=== PATIENT | female | born 1985 | race Caucasian/White ===

== ENCOUNTER 2023-10-23 00:07 | Emergency (ER) | payer MEDICAID, SELFPAY ==
[2023-10-23] VITALS (9 sets, daily range): BP systolic 122–175; BP diastolic 76–103; PULSE 60–88; RESP 12–29; TEMP 36.7–36.9; O2SAT 94–99; BMI 28.3
--- NOTE | 2023-10-23 00:16 | ECG_ITS ---
APPROVED REPORT Exam: Resting ECG HR:87 bpm ECG Measurements Heart Rate 87 AXES VT 148 P 65 QRSd 86 QRS 82 QT 374 T 24 QTc 419 Conclusion SINUS RHYTHM WITH SINUS ARRHYTHMIA MINIMAL ST DEPRESSION [0.025+ mV ST DEPRESSION] BORDERLINE ECG UNCONFIRMED REPORT Electronically signed by : Mor Leahy MD 10/23/2023 09:01:41
--- NOTE | 2023-10-23 00:19 | XR_ITS ---
PROCEDURE INFORMATION: Exam: XR Chest Exam date and time: 10/23/2023 12:24 AM Age: 38 years old Clinical indication: Shortness of breath; Additional info: Cough, SOA TECHNIQUE: Imaging protocol: Radiologic exam of the chest. Views: 2 views. Total images: 4 COMPARISON: No relevant prior studies available. FINDINGS: Lungs: Unremarkable. No consolidation. No pulmonary vascular congestion or edema. Pleural spaces: Unremarkable. No pleural effusion. No pneumothorax. Heart/Mediastinum: Unremarkable. No cardiomegaly. No mediastinal widening or hilar enlargement. Bones/joints: Mild degenerative changes thoracic spine. Soft tissues: Bilateral nipple piercings. Breast attenuation artifact. IMPRESSION: No radiographically acute cardiopulmonary process.
--- NOTE | 2023-10-23 00:32 | PC.NURSE ---
patient gone to XRay at this time.
[2023-10-23 00:36] LABS: Coronavirus 19, PCR Not Detected (NotDetected); Influenza A, PCR Not Detected (NotDetected); Influenza B, PCR Not Detected (NotDetected)
[2023-10-23 00:36] LABS: Basophils # 0.1 K/mm3 (0-0.2); Basophils % 0.7 % (0.1-2.0); Eosinophils # 0.2 K/mm3 (0.0-0.4); Hematocrit 44.8 % (37.0-47.0); Hemoglobin 15.4 g/dL (12.2-16.2); Lymphocytes % 49.6 % (10-50); Mean Corpuscular HGB Conc 34.4 g/dL (31.8-35.4); Mean Corpuscular Hemoglobin 30.6 pg (27.0-31.2); Mean Corpuscular Volume 88.8 fl (81-99); Mean Platelet Volume 8.9 fl (7.4-10.4); Monocytes # 0.3 K/mm3 (0.1-1.0); Monocytes % 3.6 % (1.7-9.3); Neutrophils # 3.5 K/mm3 (1.8-7.8); Neutrophils % 43.1 % (37.0-80.0); Platelet Count 197 K/mm3 (142-424); Red Blood Count 5.05 M/mm3 (4.20-5.40); Red Cell Distribution Width 13.3 % (11.5-17.5)
[2023-10-23] MEDS: PANTOPRAZOLE 40MG TABLET 40 MG PO (00:38)
[2023-10-23] MEDS: BELLADONNA ALKALOIDS 60 ML ML PO (00:39)
[2023-10-23 00:40] LABS: Chloride 105 mmol/L (98-107); Sodium 138 mmol/L (136-145)
[2023-10-23 00:41] LABS: Potassium 3.7 mmoL/L (3.5-5.1)
--- NOTE | 2023-10-23 00:41 | ED_ITS ---
Discharge Plan Disposition Patient Disposition: Home, Self-Care Condition: Good Prescriptions Prescriptions: New pantoprazole 40 mg tablet,delayed release (DR/EC) 40 mg PO DAILY Qty: 30 0RF Referrals Follow up/Referrals: Provider,Referral, [Primary Care Provider] - See instructions Activity Restrictions/Add. Instructions Additional Instructions/Restrictions: You were evaluated in the emergency department today. Your blood pressure readings were high temporarily, however they returned to normal range. It requires multiple visits to primary care provider's office to be diagnosed with high blood pressure officially and to be started on medication. We do not start people on medication with brief episodes of high blood pressure, as we could inadvertently cause your blood pressure to drop too low and cause harm to you. It is possible your symptoms could be related to anxiety, as your workup today has been reassuring. For your reflux, I am prescribing you pantoprazole to take daily. I recommend close follow-up with a primary care provider if you are able to. I am providing you with information for Dr. Shea. Return to the emergency department for any new or worsening symptoms. Clinical Impressions Clinical Impression: Temporary high blood pressure, Anxiety, Gastroesophageal reflux disease, Viral URI with cough Instructions Patient Instructions: DI for Gastroesophageal Reflux Disease (GERD), DI for High Blood Pressure, DI for Anxiety -- Adult Discharge ED Provider: Nae Garrido General Adult HPI General Chief complaint: Upper Respiratory Infection Stated complaint: light headed, high blood pressure Time Seen by Provider: 10/23/23 00:13 Mode of Arrival: Ambulatory Source of Information: Patient Limitations: No Limitations Description of Symptoms (Recalled from ER Triage Doc. by RN): Patient c/o high blood pressure, height of 175/105. Patient states that she has been feeling six for about a week with cough and sneezing, taking cold/flu medications. History of Present Illness HPI narrative: This patient is a 38-year-old female who denies significant past medical history presenting to the emergency department for evaluation with concern for high blood pressure reading at home. Patient states that she has had issues for quite some time now with sweatiness in her palms and feet as well as not feeling right overall. She states that she thought maybe it was anxiety, and she never got evaluated for this as she does not have insurance. She also states that she has had acid reflux frequently, even getting to the point of burping from, so she thought maybe she has GERD but she has not been able to be seen for this. She notes that she has been sick for approximately 3 days now with an upper respiratory infection with cough, sneezing, and congestion. She notes that she has been taking [place] cold and flu at home but has not taken it since last night. Tonight, she felt really unusual. She had a funny feeling in her head, felt funny in her chest, and had sensation of tingling going down her right arm as well as sweatiness in her palms. She noted that her blood pressure at home was 175/105. She denies any history of hypertension and states that typically her blood pressure is actually on the low side. Given this, she decided to come in today. She has extensive family cardiac history. Related Data Previous Rx's Medication Instructions Recorded pantoprazole 40 mg tablet,delayed 40 mg PO DAILY #30 tabs 10/23/23 release Allergies Allergy/AdvReac Type Severity Reaction Status Date / Time No Known Allergies Allergy Verified 10/23/23 00:22 [facility] Disclaimer: The information contained in this section may have been updated after the patient was seen, as this information can be updated by other users. Social History Smoking Status: Current every day smoker alcohol intake: never current occupational status: employed Travel in the last 8 weeks: None ROS Obtained: Yes All systems reviewed & no additional complaints except as documented Physical Exam General General appearance: alert and in no apparent distress Head Head exam: atraumatic and normocephalic Eye Eye exam: Present normal appearance, PERRL and EOMI ENT ENT exam: Present normal exam, normal oropharynx, mucous membranes moist and normal external ear exam Neck Neck exam: Present normal inspection, full ROM and trachea midline; Absent tenderness Chest Chest inspection: Present normal inspection and symmetric chest wall rise; Absent tenderness Respiratory Respiratory exam: Present normal lung sounds bilaterally; Absent respiratory distress, wheezes, stridor or accessory muscle use Cardiovascular Cardiovascular exam: Present regular rate and normal rhythm Abdominal Exam Abdominal exam: Present soft; Absent distention, tenderness or guarding Extremities Exam Extremities exam: Present normal inspection, full ROM and normal capillary refil l; Absent tenderness or edema Back Exam Back exam: Present normal inspection and full ROM; Absent tenderness Neurological Exam Neurological exam: Present alert, oriented X3, CN II-XII intact and normal gait; Absent motor sensory deficit Psychiatric Psychiatric exam: Present normal affect and normal mood Skin Skin exam: Present warm and dry Medical Decision Making Medical Records Medical records reviewed: Yes I reviewed the patient's medical records. Ayad Inquiry Pt receiving controlled substance: No Vital Signs: 10/23/23 00:08 10/23/23 00:31 10/23/23 01:00 Temperature 98.5 F Temperature Source Oral Pulse Rate 72 67 Pulse Rate [Radial] 88 Respiratory Rate 16 12 Blood Pressure 145/99 H 139/90 Blood Pressure [Left Arm] 175/103 H Blood Pressure Mean [Left Arm] 127 Blood Pressure Source [Left Arm] Automatic Cuff Blood Pressure Position [Left Arm] Sitting 02 Sat by Pulse Oximetry 99 97 97 Oxygen Delivery Method Room Air 10/23/23 01:31 10/23/23 02:00 10/23/23 02:30 Temperature Temperature Source Pulse Rate 63 81 64 Pulse Rate [Radial] Respiratory Rate 29 H 16 18 Blood Pressure 147/76 H 127/95 H 122/93 H Blood Pressure [Left Arm] Blood Pressure Mean [Left Arm] Blood Pressure Source [Left Arm] Blood Pressure Position [Left Arm] 02 Sat by Pulse Oximetry 97 94 L 96 Oxygen Delivery Method 10/23/23 03:00 10/23/23 03:31 10/23/23 03:36 Temperature 98.1 F Temperature Source Oral Pulse Rate 62 60 63 Pulse Rate [Radial] Respiratory Rate 20 20 18 Blood Pressure 135/83 126/83 126/83 Blood Pressure [Left Arm] Blood Pressure Mean [Left Arm] Blood Pressure Source [Left Arm] Blood Pressure Position [Left Arm] 02 Sat by Pulse Oximetry 95 97 Oxygen Delivery Method Room Air Room Air Room Air Lab Data Lab results reviewed: Yes I reviewed the patient's lab results. Lab Results 10/23/23 00:23: SARS-CoV-2 (PCR) Not detected, Influenza A Untype (PCR) Not detected, Influenza Type B (PCR) Not detected 10/23/23 00:29: WBC 8.0, RBC 5.05, Hgb 15.4, Hct 44.8, MCV 88.8, MCH 30.6, MCHC 34.4, RDW 13.3, Plt Count 197, MPV 8.9, Neut % (Auto) 43.1, Lymph % (Auto) 49.6, [place] % (Auto) 3.6, Eos % (Auto) 3.0, Baso % (Auto) 0.7, Neut # (Auto) 3.5, Lymph # (Auto) 4.0, Pre[place] # (Auto) 0.3, Eos # (Auto) 0.2, Baso # (Auto) 0.1, Sodium 138, Potassium 3.7, Chloride 105, Carbon Dioxide 24, Anion Gap 12.7, BUN 15, Creatinine 0.90, Estimated Creat Clear 98, Estimated GFR 69, Est GFR ( Amer) 84, Glucose 127 H, Calcium 8.3 L, Total Bilirubin 0.4, AST 32, ALT 24, Alkaline Phosphatase 110, Troponin I < 0.01, Total Protein 7.7, Albumin 4.4, Globulin 3.3 H, Albumin/Globulin Ratio 1.3, TSH 3.55, Thyroxine (T4) 7.9, Serum HCG, Qual Negative 10/23/23 00:41: Urine Color Yellow, Urine Appearance Clear, Urine pH 6.0, Ur Specific [place] 1.015, Urine Protein Negative, Urine Glucose (UA) Negative, Urine Ketones Negative, Urine Blood 1+, Urine Nitrate Negative, Urine Bilirubin Negative, Urine Urobilinogen 0.2, Ur Leukocyte Esterase Negative, Urine RBC Occasional, Urine WBC 3-5, Ur Squamous Epith Cells 5-10, Urine Bacteria 1+ 10/23/23 03:04: Troponin I < 0.01 10/23/23 00:29 10/23/23 00:29 Orders (Tests/Meds): ED MEDICATIONS Discontinued Medications Generic Name Dose Route Start Last Admin Trade Name Freq PRN Reason Stop Dose Admin Belladonna Alkaloids 60 ml 10/23/23 00:25 10/23/23 00:39 Belladonna Alkaloids 60 Ml Ml PO 10/23/23 00:26 60 ml ONCE ONE Administration Lactated Ringer's 1,000 mls @ 999 mls/hr 10/23/23 01:06 10/23/23 01:20 Lactated Ringer's 1000 Ml Bag IV 10/23/23 02:06 999 mls/hr .Q1H1M ONE Administration Pantoprazole Sodium 40 mg 10/23/23 00:25 10/23/23 00:38 Pantoprazole 40mg Tablet PO 10/23/23 00:26 40 mg ONCE ONE Administration ORDERS Category Date Time Status XR chest 2V Stat Exams 10/23/23 00:19 Completed Complete Blood Count Auto Diff Stat Lab 10/23/23 00:29 Completed Comprehensive Metabolic Panel Stat Lab 10/23/23 00:29 Completed Rapid PCR Covid and Flu A/B Stat Lab 10/23/23 00:23 Completed Serum [HCG Qualitative, Serum] Stat Lab 10/23/23 00:29 Completed T4 (Thyroxine) Stat Lab 10/23/23 00:29 Completed Thyroid Stimulating Hormone Stat Lab 10/23/23 00:29 Completed Troponin I Q3H Lab 10/23/23 03:04 Completed Troponin I Q3H Lab 10/23/23 06:30 Ordered Troponin I Stat Lab 10/23/23 00:29 Completed Urinalysis and Microscopic Stat Lab 10/23/23 00:41 Completed ECG initial Besson Routine Y 10/23/23 00:16 Completed ECG Data Tracing #1: I reviewed this ECG and interpreted as documented below: Normal sinus rhythm with a ventricular rate of [address] changes concerning for ischemia. Normal axis and intervals ECG initial impression date: 10/23/23 ECG initial impression time: 00:18 HEART Score History (anamnesis): Moderately suspicious ECG: Non-specific disturbance Age: <45 years Risk factors: No known risk factors Troponin: </= normal limit HEART Score: 2 Medical Decision Narrative: In summary, this patient is a 38-year-old female presenting to the Emergency Department for evaluation of strange feeling all over, sweatiness in her palms, and high blood pressure reading at home in the setting of current viral upper respiratory infection. Differential diagnoses considered include but are not limited to viral URI, pneumonia, ACS, dysrhythmia, hypertension, hypertensive urgency, hypertensive emergency, anxiety, GERD. Ruling out the most morbid conditions drove assessment. On exam, the patient is nontoxic-appearing. Cardiopulmonary exam is reassuring, and vitals are reassuring on cardiac telemetry aside from hypertension with systolics in the 170s. EKG was obtained and is not concerning for STEMI. Patient is PERC negative for pulmonary embolus. Workup included CBC, CMP, troponin, TSH, T4, chest x-ray, urinalysis, viral swab. Patient was given GI cocktail and pantoprazole for acid reflux symptoms. At this time, I am not treating her hypertension, as I feel this could be result of her upper respiratory infection and/or the cold and flu medication that she has been taking at home. She notes that her blood pressure is typically low, so I feel that the risk of starting her on antihypertensives to manage this blood pressure would outweigh the benefit. We are continuing to monitor her blood pressure on cardiac telemetry at this time. On reassessment, patient had improvement in her blood pressure to 130s over 90s. She is resting comfortably and she states that she feels like she is calm down and the sweating in her palms and feet has improved. She had some improvement with administration of medications as above. Labs are reassuring with negative initial troponin, normal kidney function, and no other acute concerns. I independently interpreted chest x-ray prior to radiology read and noted no acute focal consolidation, pneumothorax, or other concerns. Please see radiology read for further documentation. Heart score is 2. At this time, feel her symptoms may be related to anxiety given that they were ongoing before her viral upper respiratory infection with intermittent lightheadedness, funny feeling, and sweatiness in her palms and soles. This could also explain her hypertension that resolved once she had calm down. I do feel like we should obtain a second troponin to exclude cardiac etiology at this time. Patient was placed in ED observation status at 0100 10/23/23 pending second troponin to determine whether or not she would be appropriate for discharge and outpatient follow-up. Given her recent URI and the fact she has been feeling rough, she was also given a bolus of IV fluids. Patient remains on cardiac telemetry with reassuring vital signs at this time. On subsequent reassessment, the patient is resting calmly with normal vital signs on cardiac telemetry, including blood pressure. Second troponin was also undetectable. Given reassuring workup and exam, I do not feel that the patient likely has any acute life-threatening illness at this time. I do feel that she is appropriate for discharge. Given this, ED observation status was ended at 0330 after 2.5 hours. I had a [id number] discussion with the patient regarding discharge, and less than 30 minutes was spent in preparation for discharge. I counseled her on the importance of outpatient follow-up with her primary care provider for further evaluation and management of these issues. She was given prescription for pantoprazole for her acid reflux symptoms. She was given strict return precautions, instructions to close the patient woke, and she was discharged in stable condition after all questions were answered. She was discharged in stable condition. Critical Care Critical Care Time Critical Care Time: No
[2023-10-23 00:43] LABS: Alanine Aminotransferase 24 U/L (12-78); Albumin Level 4.4 g/dl (3.5-5.0); Albumin/Globulin Ratio 1.3 (1.1-1.8); Alkaline Phosphatase 110 U/L (38-126); Anion Gap 12.7 mEq/L (5-15); Aspartate Amino Transferase 32 U/L (14-36); Bilirubin,Total 0.4 mg/dl (0.2-1.3); Blood Urea Nitrogen 15 mg/dl (7-17); Carbon Dioxide 24 mmol/L (22.0-30.0); Creatinine Clearance Estimated 98 mL/min (50-200); Estimated Glomerular Filt Rate 69 ml/min (>60); GFR (African American) 84 ML/MIN (>60); Globulin 3.3 g/dL (1.3-3.2); Total Protein,Serum 7.7 g/dl (6.3-8.2)
[2023-10-23 00:44] LABS: Calcium 8.3 mg/dl (8.4-10.2); Glucose 127 mg/dl (74-100)
[2023-10-23 00:47] LABS: HCG Qualitative, Serum Negative (Negative)
[2023-10-23 00:48] LABS: Microscopic, Urine URINE MICROSCOPIC (MICROSCOPIC)
[2023-10-23 00:57] LABS: Appearance,Urine CLEAR (Clear); Bilirubin,Urine Negative (Negative); Blood, Urine 1+ (Negative); Color,Urine YELLOW (Yellow); Glucose,Urine (UA) Negative (Negative); Ketones,Urine Negative (Negative); Leukocyte Esterase,Urine Negative (Negative); Nitrate,Urine Negative (Negative); Protein,Urine Negative (Negative); Specific Gravity, Urine 1.015 (1.005-1.030); Urobilinogen,Urine 0.2 EU/dl (0.2)
[2023-10-23 00:58] LABS: Troponin I < 0.01 ng/ml (0.00-0.034)
[2023-10-23 01:00] LABS: Bacteria,Urine 1+ /lpf; RBC,Urine Occasional #/hpf (0-3)
[2023-10-23 01:01] LABS: T4 (Thyroxine) 7.9 ug/dl (5.53-11.0)
[2023-10-23 01:15] LABS: Thyroid Stimulating Hormone 3.55 uIU/mL (0.465-4.68)
[2023-10-23] MEDS: LACTATED RINGERS 1000ML 1,000 ML 999 ML IV (01:20)
--- NOTE | 2023-10-23 02:00 | PC.NURSE ---
dr Garrido updated patient and family.
--- NOTE | 2023-10-23 02:05 | PC.NURSE ---
assisted patient to restroom.
[2023-10-23 03:33] LABS: Troponin I < 0.01 ng/ml (0.00-0.034)
--- NOTE | 2023-10-23 03:36 | PC.NURSE ---
in room talking with patient at this time.
== END 2023-10-23 03:45 | disposition home or self-care (01) ==
PROVIDERS: Emergency Provider Emergency Medicine
DX: R42 Dizziness and giddiness (principal); K21.9 Gastro-esophageal reflux disease without esophagitis; J06.9 Acute upper respiratory infection, unspecified; R05.9 Cough, unspecified; R03.0 Elevated blood-pressure reading, without diagnosis of hypertension
CPT/HCPCS: 71046; 80053; 81001; 84436; 84443; 84484; 84703; 85025; 87636; 93005; 96360; 99285

== ENCOUNTER 2024-01-05 11:31 | Outpatient (CLI) | payer MEDICAID, SELFPAY ==
[2024-01-05 11:35] LABS: Basophils # 0.1 K/mm3 (0-0.2); Basophils % 0.9 % (0.1-2.0); Eosinophils # 0.1 K/mm3 (0.0-0.4); Eosinophils % 1.6 % (0.1-12.0); Hematocrit 46.5 % (37.0-47.0); Hemoglobin 15.3 g/dL (12.2-16.2); Lymphocytes # 1.8 K/mm3 (0.7-4.5); Lymphocytes % 20.7 % (10-50); Mean Corpuscular HGB Conc 32.8 g/dL (31.8-35.4); Mean Corpuscular Hemoglobin 31.2 pg (27.0-31.2); Mean Corpuscular Volume 94.9 fl (81-99); Mean Platelet Volume 9.1 fl (7.4-10.4); Monocytes # 0.3 K/mm3 (0.1-1.0); Monocytes % 3.4 % (1.7-9.3); Neutrophils # 6.4 K/mm3 (1.8-7.8); Neutrophils % 73.3 % (37.0-80.0); Platelet Count 214 K/mm3 (142-424); Red Cell Distribution Width 13.6 % (11.5-17.5); White Blood Count 8.7 K/mm3 (4.8-10.8)
[2024-01-05 12:22] LABS: Alanine Aminotransferase 16 U/L (12-78); Albumin Level 4.6 g/dl (3.5-5.0); Albumin/Globulin Ratio 1.5 (1.1-1.8); Alkaline Phosphatase 132 U/L (38-126); Anion Gap 12.7 mEq/L (5-15); Aspartate Amino Transferase 23 U/L (14-36); Bilirubin,Total 0.6 mg/dl (0.2-1.3); Blood Urea Nitrogen 11 mg/dl (7-17); Calcium 9.3 mg/dl (8.4-10.2); Carbon Dioxide 22 mmol/L (22.0-30.0); Chloride 109 mmol/L (98-107); Estimated Glomerular Filt Rate 79 ml/min (>60); GFR (African American) 96 ML/MIN (>60); Glucose 104 mg/dl (74-100); Potassium 4.7 mmoL/L (3.5-5.1); Sodium 139 mmol/L (136-145); Total Protein,Serum 7.6 g/dl (6.3-8.2)
[2024-01-05 12:28] LABS: C-Reactive Protein 6.1 mg/L (0-4)
[2024-01-05 12:43] LABS: Triiodothryronine (T3) Uptake 33 % (23.5-40.5)
[2024-01-05 12:56] LABS: Thyroid Stimulating Hormone 1.34 uIU/mL (0.465-4.68)
[2024-01-05 13:07] LABS: Erythrocyte Sedimentation Rate 15 mm/hr (0-20)
[2024-01-06 14:59] LABS: Anti-Centromere B Antibodies <0.2 AI (0.0-0.9); Anti-Cyclic Citrullinated Pept 3 units (0-19); Anti-DNA (DS) Ab Qn <1 IU/mL (0-9); Anti-Jo-1 <0.2 AI (0.0-0.9); Anti-Smith Antibody <0.2 AI (0.0-0.9); Antichromatin Antibodies <0.2 AI (0.0-0.9); Antiscleroderma-70 Antibodies <0.2 AI (0.0-0.9); FSH 11.9 mIU/mL (.); HBsAg Screen Negative (Negative); HCV Ab Non Reactive (Non Reactive); HIV Screen 4th Generation wRfx Non Reactive (Non Reactive); Hep A Ab, IGM Negative (Negative); Hep B Core Ab, IgM Negative (Negative); Progesterone 0.3 ng/mL (.); RA Latex Turbid. <10.0 IU/mL (<14.0); RNP Antibodies <0.2 AI (0.0-0.9); Sjogren's Anti-SS-A <0.2 AI (0.0-0.9); Sjogren's Anti-SS-B <0.2 AI (0.0-0.9); Testosterone,Total 9 ng/dL (8-60)
[2024-01-06 16:14] LABS: EBV Ab VCA, IgG >600.0 U/mL (0.0-17.9); EBV Ab VCA, IgM <36.0 U/mL (0.0-35.9)
[2024-01-11 00:08] LABS: Estrogen 74 pg/mL (.)
== END 2024-01-05 23:59 | disposition home or self-care (01) ==
LOC: LAB.DROPOF 11:31
PROVIDERS: PCP Physician Assistant; Visit Provider Physician Assistant
DX: K92.1 Melena (principal); R61 Generalized hyperhidrosis; R00.2 Palpitations; K21.9 Gastro-esophageal reflux disease without esophagitis; F41.9 Anxiety disorder, unspecified; R19.5 Other fecal abnormalities
CPT/HCPCS: 80053; 80074; 82672; 83001; 83002; 84144; 84403; 84436; 84443; 84479; 85025; 85651; 86140; 86200; 86225; 86235; 86431; 86664; 86665; 86703; G0432

== ENCOUNTER 2024-01-09 13:02 | Outpatient (CLI) | payer MEDICAID, SELFPAY ==
[2024-01-09 13:25] LABS: Adenovirus F 40/41, stool Not Detected (NotDetected); Astrovirus Not Detected (NotDetected); Campylobacter Not Detected (NotDetected); Clostridium Difficile A/B, PCR Not Detected (NotDetected); Cryptosporidium Not Detected (NotDetected); Cyclospora Cayetanesis Not Detected (NotDetected); Entamoeba histolytica Not Detected (NotDetected); Enteroaggregative E coli Not Detected (NotDetected); Enteropathogenic E coli Not Detected (NotDetected); Enterotoxigenic E coli Not Detected (NotDetected); Giardia lamblia Not Detected (NotDetected); Norovirus Not Detected (NotDetected); Plesimonas Shigalloides, PCR Not Detected (NotDetected); Rotavirus A Not Detected (NotDetected); Salmonella, PCR Not Detected (NotDetected); Sapovirus Not Detected (NotDetected); Shiga-like toxin E coli Not Detected (NotDetected); Shigella Enterovasive E coli Not Detected (NotDetected); Vibrio Cholerae Not Detected (NotDetected); Vibrio, PCR Not Detected (NotDetected); Yersinia Entercolitica, PCR Not Detected (NotDetected)
[2024-01-12 14:57] LABS: Pancreatic Elastase, Fecal 351 (>200)
[2024-01-14 23:24] LABS: Calprotectin, Fecal 9 ug/g (0-120)
== END 2024-01-09 23:59 ==
LOC: LAB.DROPOF 13:03
PROVIDERS: PCP Physician Assistant; Visit Provider Physician Assistant
DX: K92.1 Melena (principal); R61 Generalized hyperhidrosis; R00.2 Palpitations
CPT/HCPCS: 82656; 83993; 87507

== ENCOUNTER 2024-01-09 15:12 | Outpatient (CLI) | payer MEDICAID, SELFPAY | END 2024-01-09 23:59 | LOC: RT 15:12 | PROVIDERS: PCP Physician Assistant; Visit Provider Physician Assistant | DX: R00.0 Tachycardia, unspecified (principal); R00.2 Palpitations | CPT/HCPCS: 93225 ==

== ENCOUNTER 2024-01-10 18:55 | Outpatient (CLI) | payer MEDICAID, SELFPAY ==
[2024-01-10 20:48] LABS: Intact Parathyroid Hormone 90.5 pg/mL (7.5-53.5)
[2024-01-16 12:38] LABS: Dopamine, Plasma < 30 pg/mL (0-48); Epinephrine, Plasma 43 pg/mL (0-62); Norepinephrine, Plasma 344 pg/mL (0-874)
== END 2024-01-10 23:59 ==
LOC: LAB 18:57
PROVIDERS: PCP Physician Assistant; Visit Provider Physician Assistant
DX: R89.9 Unspecified abnormal finding in specimens from other organs, systems and tissues (principal)
CPT/HCPCS: 82384; 83970

== ENCOUNTER 2024-01-20 13:19 | Outpatient (CLI) | payer MEDICAID, SELFPAY ==
--- NOTE | 2024-01-20 13:20 | CA_ITS ---
FINAL REPORT TECHNIQUE: Color Doppler, duplex Doppler and georges scale sonography of the bilateral neck vasculature was performed. Velocities were measured in the carotid arteries. Stenosis evaluation based on velocity criteria. CLINICAL HISTORY: right sided neck pain COMPARISON: None FINDINGS: The peak systolic velocity of the right common carotid artery is 109 cm/sec and internal carotid artery 92 cm/sec. The diastolic velocity in the internal carotid artery is 34 cm/sec. The ICA/CCA ratio is 0.95. Visually, no significant plaque is seen. These findings are consistent with less than 50% stenosis. The external carotid artery is patent. The right vertebral artery is patent with antegrade flow. The peak systolic velocity of the left common carotid artery is 99 cm/sec and internal carotid artery 92 cm/sec. The diastolic velocity in the internal carotid artery is 37 cm/sec. The ICA/CCA ratio is 1.14. Visually, no significant plaque is seen. These findings are consistent with less than 50% stenosis. The external carotid artery is patent. The left vertebral artery is patent with antegrade flow. IMPRESSION: No evidence of significant carotid stenosis. Bilateral patent vertebral arteries. If indicated, CTA or MRA could further evaluate. Reviewed, Interpreted and Dictated by Lennox Stokes III, MD Transcribed by Isabella Smith Authenticated and [facility]
== END 2024-01-20 23:59 ==
LOC: RT 13:20
PROVIDERS: PCP Physician Assistant; Visit Provider Physician Assistant
DX: R00.2 Palpitations (principal); M54.2 Cervicalgia
CPT/HCPCS: 93880

== ENCOUNTER 2024-02-06 09:46 | Outpatient (CLI) | payer MEDICAID, SELFPAY ==
--- NOTE | 2024-02-06 09:47 | NM_ITS ---
FINAL REPORT CLINICAL HISTORY: elevated PTH 9:50AM 21.6 MCI TC SODIUM PERTECHNETATE COMPARISON: None FINDINGS: PARATHYROID SCAN History: Elevated PTH Procedure: The patient received a dose of 21.6 millicuries of technetium 99m sodium pertechnetate. Images over the neck were obtained initially and after a two-hour delay. Immediate: Activity is symmetric in both lobes of the thyroid. Delayed: No definite abnormal activity to suggest parathyroid adenoma. IMPRESSION: No evidence of parathyroid adenoma. Reviewed, Interpreted and Dictated by Refugio Suarez MD Transcribed by Nolvia Zepeda Authenticated and [facility]
[2024-02-06] MEDS: SODIUM CHLORIDE 0.9% 10ML SYR (RAD ONLY) 10 ML IV (10:11)
[2024-02-06] MEDS: ISOTOPE TE 99 SODIUM PERTECH (PER MCI) 1 MCI IV (10:11)
== END 2024-02-06 23:59 | disposition home or self-care (01) ==
LOC: RAD 09:47
PROVIDERS: PCP Physician Assistant; Visit Provider Physician Assistant
DX: R79.89 Other specified abnormal findings of blood chemistry (principal)
CPT/HCPCS: 78070; A9512

== ENCOUNTER 2024-08-14 11:25 | Outpatient (CLI) | payer MEDICAID, SELFPAY ==
[2024-08-14 18:57] LABS: Chol/HDL Ratio 4.7 (1-3.5); Cholesterol 186 mg/dl (140-200); HDL Cholesterol 40 mg/dl (40-60); Triglycerides 122 mg/dl (30-150); VLDL Cholesterol 24 mg/dL (0-40)
[2024-08-14 19:08] LABS: Direct LDL Cholesterol 131.71 mg/dL (100-129)
[2024-08-14 19:27] LABS: Thyroid Stimulating Hormone 0.92 uIU/mL (0.465-4.68)
[2024-08-14 19:40] LABS: Creatinine,Urine Random 149 mg/dL (Not Estab.); Microalbumin < 6.000 mg/L (0-16.7)
== END 2024-08-14 23:59 | disposition home or self-care (01) ==
LOC: LAB.DROPOF 08-15 12:47
PROVIDERS: PCP Internal Medicine; Visit Provider Internal Medicine
DX: R00.2 Palpitations (principal); F41.9 Anxiety disorder, unspecified; R03.0 Elevated blood-pressure reading, without diagnosis of hypertension; R53.83 Other fatigue; E66.3 Overweight; Z68.29 Body mass index [BMI] 29.0-29.9, adult
CPT/HCPCS: 80061; 82043; 82306; 82570; 84443

== ENCOUNTER 2025-06-14 10:02 | Emergency (ER) | payer MEDICAID, SELFPAY ==
[2025-06-14] VITALS (12 sets, daily range): BP systolic 119–172; BP diastolic 70–137; PULSE 66–91; RESP 16–18; TEMP 36.4–37.6; O2SAT 97–100
--- NOTE | 2025-06-14 10:11 | ECG_ITS ---
APPROVED REPORT Exam: Resting ECG HR:77 bpm ECG Measurements Heart Rate 77 AXES TX 155 P 63 QRSd 86 QRS 81 QT 337 T 20 QTc 368 Conclusion Sinus rhythm Normal axis Normal intervals NO STEMI Electronically signed by : West Varma, 06/14/2025 16:35:46
--- OUTSIDE RECORDS SUMMARY | 2025-06-14 10:20 | XMS_ITS | Clinical Summary ---
Author Organization [employer] ([place], [place], [place], [place]) Address [address] [place] [address] Care Team Providers Care Import And Export Clerk Name Role Phone Corrina Helton MD Primary Care Provider [phone] Allergies No known active allergies Medications propranoloL (INDERAL LA) 60 MG 24 hr capsule Take 1 capsule (60 mg total) by mouth daily. 08/13/2024 Active Encounters Date Type Department Care Team Description 04/10/2025 1:15 PM EDT Clinical Support [facility] Gastroenterology [address] [place] [id number] Aida Del Toro APRN Miller, Matthew, MD Colon cancer screening from Last 3 Months Social History Tobacco Use Types Packs/Day Years Used Date Smoking Tobacco: Every Day Cigarettes Smokeless Tobacco: Never Tobacco Cessation:Ready to Q uit: Not Asked; Counseling Given: Not Answered Alcohol Use Standard Drinks/Week Comments Yes 0 (1 standard drink = 0.6 oz pur e alcohol) Comments Unknown Sex and Gender Information Value Date Recorded Sex Assigned at Not on file Legal Sex Female 5:36 PM CDT Gender Identity Not on file Sexual Orientation Not on file Last Filed Vital Signs Vital Sign Reading Time Taken Comments Blood Pressure - - Pulse - - Temperature - - Respiratory Rate - - Oxygen Saturation - - Inhaled Oxygen Concentration - - Weight 78.9 kg (174 lb) 04/10/2025 1:24 PM EDT Height 162.6 cm (5' 4 ) 04/10/2025 1:24 PM EDT Body Mass Index 29.87 04/10/2025 1:24 PM EDT Plan of Treatment Health Maintenance Due Date Last Done Comments Depression Screening (12+) 1995 Tobacco Cessation Counseling and Screening (12+) 04/06 HIV Screening 1998 Hepatitis C Screening 2001 Pneumococcal Vaccine: 0-49 Years (1 of 2 - PCV) 2001 Lipid Panel 2003 Pap Smear 2004 DTAP/TDAP/TD VACCINES (2 - Td or Tdap) 05/14/2020 Breast Cancer Screening 2023 COVID-19 VACCINE ( season) 2024 Influenza Vaccine (#1) 2025 Insurance [facility] Care Teams Import And Export Clerk Relationship Specialty Start Date End Date Corrina Helton MD [address] [place] [address] PCP - General Internal Medicine 04/10/25
--- OUTSIDE RECORDS SUMMARY | 2025-06-14 10:20 | XMS_ITS | Referral Summary ---
Author Organization [employer] ([place], [place], [place], [place]) Address [address] [place] [address] Care Team Providers Care Consultant Name Role Phone Corrina Helton MD Primary Care Provider [phone] Encounters Date Type Department Care Team Description 04/10/2025 1:15 PM EDT Clinical Support [facility] Gastroenterology [address] [place] [address] Aida Del Toro APRN Miller, Matthew, MD Colon cancer screening from Last 3 Months Allergies No known active allergies Medications propranoloL (INDERAL LA) 60 MG 24 hr capsule Take 1 capsule (60 mg total) by mouth daily. 08/13/2024 Active Social History Tobacco Use Types Packs/Day Years [...] 04/10/2025 1:24 PM EDT Plan of Treatment Not on file Insurance [facility] Care Teams Consultant Relationship Specialty Start Date End Date Corrina Helton MD [facility] [place] [address] PCP - General Internal Medicine 04/10/25
--- NOTE | 2025-06-14 10:22 | PC.NURSE ---
er at bedside
--- NOTE | 2025-06-14 10:35 | HMH.EDGENADL ---
Discharge Plan Disposition Patient Disposition: Home, Self-Care Condition: Good Prescriptions Prescriptions: No Action propranolol 60 mg capsule,extended release 24 hr 60 mg PO DAILY Qty: 60 1RF Mirena 21 mcg/24hr (up to 8 yrs) 52 mg intrauterine device 1 device intrauterine Referrals Follow up/Referrals: Hal Corona DO [Non-Staff, Internal Medicine] - See instructions Activity Restrictions/Add. Instructions Additional Instructions/Restrictions: Please return to the ER if you have any new or worsening symptoms. You may take Ibuprofen and Tylenol for fever and body aches. Clinical Impressions Clinical Impression: Acute viral syndrome Print Language Print Language: Urdu Discharge ED Provider: [facility] General Adult HPI General Chief complaint: PAIN Stated complaint: BP high, fever, headache Time Seen by Provider: 06/14/25 10:12 Mode of Arrival: Ambulatory Source of Information: Patient Description of Symptoms (Recalled from ER Triage Doc. by RN): pt presents to the er for fever, chills, and joint pain that started around 4pm yesterday, also reports dark urine that started 1-2 days ago, states she had some bartholin cysts rupture about a week ago, has had issues with them for 6 months now, rates joint pain 7/10, constant, and aching History of Present Illness HPI narrative: This is a 40-year-old female patient, with past medical history of anxiety on propranolol for heart rate control, who is presenting to the emergency department today for evaluation of fever. The patient states that she has not felt well for the last couple of days and she is now developing fevers of 100.8 ?F. She states that she has had some congestion with ringing in the right ear and a mild headache. She has had no photophobia or neck stiffness. She states that she gets cyst in the vaginal region that sometimes drain clear fluid but she does not believe these are overtly infected at this time. On prior chart review from her [facility], Dr. Shea stated that the patient was thinking she could have Bartholin gland cyst/abscesses however on her examination this was not in the Bartholin gland location and it was not within the vagina but instead was in the groin area. The patient states that she is not having any purulence from her groin. She has noticed some suprapubic pressure and discomfort, but has not noticed any hematuria or dysuria. She also states that her urine is darker than it used to be. Related Data Home Medications ?Medication ?Instructions ?Recorded ?Confirmed levonorgestrel (Mirena) 1 device intrauterine 09/20/24 06/14/25 Previous Rx's ?Medication ?Instructions ?Recorded propranolol 60 mg capsule,24 60 mg PO DAILY #60 caps 08/14/24 hr,extended release Allergies Allergy/AdvReac Type Severity Reaction Status Date / Time No Known Allergies Allergy Verified 06/14/25 10:18 [facility] Disclaimer: The information contained in this section may have been updated after the patient was seen, as this information can be updated by other users. Medical History (Updated 06/14/25 @ 12:35 by Sugey Pillai APRN) Lightheaded Anxiety Gastroesophageal reflux disease Palpitations Insomnia Generalized hyperhidrosis Surgical History History of delivery History of bilateral salpingectomy History of tonsillectomy Family History Other Cancer Hypertension Stroke Social History Smoking Status: Current every day smoker alcohol intake: never substance use type: denies use and marijuana current occupational status: employed Travel in the last 8 weeks?: None Have you lived/traveled outside [place] in past 30 days?: No Contact w/someone who lives/traveled outside US past 30 days?: No Exposure to someone with infectious disease in past 14 days?: No Do you have a fever (greater than 100.4 F or 38 C)?: Yes Have you tested positive for COVID-19?: No Exposed to someone with COVID-19 in past 14 days?: No Do you have a sore throat?: No Do you have a cough?: No Do you have any weakness?: No Do you have any diarrhea?: No Are you experiencing any unusual bleeding?: No Do you have any muscle aches/pain?: No Do you have any abdominal pain?: No Are you experiencing loss of taste or smell?: No ROS Obtained: Yes Systems reviewed as appropriate & no additional complaints except as documented Physical Exam General General appearance: other (See MDM) Respiratory Respiratory exam: Present other (See MDM) Cardiovascular Cardiovascular exam: Present other (See MDM) Neurological Exam Neurological exam: Present other (See MDM) Medical Decision Making Medical Records Medical records reviewed: Yes I reviewed the patient's medical records. Screening: Per USPSTF and CDC recommendations, given the prevalence of disease in our region, it is our hospital?s policy to screen for HIV and viral Hepatitis for all patients aged 18 and over and those with ongoing risk factors. Ayad Inquiry Pt receiving controlled substance: No Ayad was queried for this patient: No Vital Signs: 06/14/25 10:10 06/14/25 10:10 06/14/25 11:15 Temperature 99.6 F Temperature Source Oral Pulse Rate 80 80 Pulse Rate [Right Radial] 91 H Respiratory Rate 18 16 Blood Pressure 156/137 H 127/77 Blood Pressure [Right Arm] 172/116 H Blood Pressure Mean [Right Arm] 134 Blood Pressure Source Blood Pressure Source [Right Arm] Automatic Cuff Blood Pressure Position Blood Pressure Position [Right Arm] Sitting 02 Sat by Pulse Oximetry 98 99 98 Oxygen Delivery Method Room Air 06/14/25 11:20 06/14/25 11:25 06/14/25 11:30 Temperature Temperature Source Pulse Rate 71 66 87 Pulse Rate [Right Radial] Respiratory Rate Blood Pressure 120/70 119/76 144/90 H Blood Pressure [Right Arm] Blood Pressure Mean [Right Arm] Blood Pressure Source Blood Pressure Source [Right Arm] Blood Pressure Position Blood Pressure Position [Right Arm] 02 Sat by Pulse Oximetry 100 100 98 Oxygen Delivery Method 06/14/25 11:35 06/14/25 11:40 06/14/25 11:45 Temperature Temperature Source Pulse Rate 79 74 75 Pulse Rate [Right Radial] Respiratory Rate Blood Pressure 137/93 H 143/96 H 141/84 H Blood Pressure [Right Arm] Blood Pressure Mean [Right Arm] Blood Pressure Source Blood Pressure Source [Right Arm] Blood Pressure Position Blood Pressure Position [Right Arm] 02 Sat by Pulse Oximetry 99 100 100 Oxygen Delivery Method 06/14/25 11:51 06/14/25 12:00 06/14/25 12:05 Temperature Temperature Source Pulse Rate 76 67 71 Pulse Rate [Right Radial] Respiratory Rate Blood Pressure 152/79 H 142/82 H 145/81 H Blood Pressure [Right Arm] Blood Pressure Mean [Right Arm] Blood Pressure Source Blood Pressure Source [Right Arm] Blood Pressure Position Blood Pressure Position [Right Arm] 02 Sat by Pulse Oximetry 99 98 99 Oxygen Delivery Method 06/14/25 12:24 Temperature 97.6 F Temperature Source Oral Pulse Rate 78 Pulse Rate [Right Radial] Respiratory Rate 16 Blood Pressure 136/80 Blood Pressure [Right Arm] Blood Pressure Mean [Right Arm] Blood Pressure Source Automatic Cuff Blood Pressure Source [Right Arm] Blood Pressure Position Sitting Blood Pressure Position [Right Arm] 02 Sat by Pulse Oximetry Oxygen Delivery Method Room Air Lab Data Lab Results 06/14/25 10:34: SARS-CoV-2 (PCR) Not detected, Influenza Type A (PCR) Not detected, Influenza Type B (PCR) Not detected, RSV (PCR) Not detected, Rhinovirus (PCR) Not detected 06/14/25 10:45: WBC 5.0, RBC 4.93, Hgb 15.2, Hct 43.0, MCV 87.2, MCH 30.8, MCHC 35.3, RDW 12.7, Plt Count 163, MPV 10.6 H, Neut % (Auto) 78.4, Lymph % (Auto) 14.8, [place] % (Auto) 5.0, Eos % (Auto) 0.6, Baso % (Auto) 0.8, Neut # (Auto) 3.9, Lymph # (Auto) 0.7, [place] # (Auto) 0.3, Eos # (Auto) 0.0, Baso # (Auto) 0.0, Sodium 135 L, Potassium 3.9, Chloride 107, Carbon Dioxide 21 L, Anion Gap 10.9, BUN 9, Creatinine 0.80, Estimated Creat Clear 115, Estimated GFR 79, Est GFR ( Amer) 95, Glucose 115 H, Calcium 8.7, Total Bilirubin 0.6, AST 32, ALT 20, Alkaline Phosphatase 92, Total Protein 7.9, Albumin 4.6, Globulin 3.3 H, Albumin/Globulin Ratio 1.4, HCV Ab LAMIN w/Rflx PCR Qn Negative, HIV Ag/Ab Combo Qual Negative 06/14/25 10:49: Urine Color Yellow, Urine Appearance Clear, Urine pH 6.5, Ur Specific [place] 1.020, Urine Protein Negative, Urine Glucose (UA) Negative, Urine Ketones Negative, Urine Blood Negative, Urine Nitrate Negative, Urine Bilirubin Negative, Urine Urobilinogen 0.2, Ur Leukocyte Esterase Negative, Urine RBC Occasional, Urine WBC 3-5, Ur Squamous Epith Cells Occasional, Urine Bacteria Trace 06/14/25 10:45 06/14/25 10:45 Orders (Tests/Meds): ED MEDICATIONS Discontinued Medications Generic Name Dose Route Start Last Admin Trade Name Cheri PRN Reason Stop Dose Admin Lactated Ringer's 1,000 mls @ 999 mls/hr 06/14/25 10:32 06/14/25 11:59 Lactated Ringer's 1000 Ml Bag IV 06/14/25 11:32 Infused .Q1H1M ONE Infusion ORDERS Category Date Time Status CBC w/Auto Diff [Complete Blood Count Auto Diff] Stat Lab 06/14/25 10:45 Completed CMP [Comprehensive Metabolic Panel] Stat Lab 06/14/25 10:45 Completed HIV Combo Stat Lab 06/14/25 10:45 Completed Hepatitis C Ab Qual. W/ RFX Stat Lab 06/14/25 10:45 Completed Mini Respiratory Panel Stat Lab 06/14/25 10:34 Completed UA [Urinalysis and Microscopic] Stat Lab 06/14/25 10:49 Completed ECG Data Tracing #1: I reviewed this ECG and interpreted as documented below: EKG personally interpreted by me demonstrates normal sinus rhythm with a rate of 77 bpm, normal axis, no OH prolongation, narrow QRS, no QTc prolongation. No ST elevation or depression. No overt signs of ischemia or arrhythmia Medical Decision Narrative: In summary, this is a 40-year-old female patient who is presenting to the emergency department today for evaluation of bodyaches, fevers, headaches, and an overall feeling of malaise. The patient describes some congestion and ringing in the right ear as well as urine that is darker than usual with suprapubic pressure intermittently. She does not have any comorbidities that complicate her medical management or care. I have specifically asked about prior IV drug use and she denies use of IV drugs at any point in her lifetime. The patient was seen at an urgent care prior to arrival and because her blood pressure was elevated they sent her here for further evaluation. On initial evaluation of the patient they were resting comfortably in no acute distress and nontoxic in appearance. They are hemodynamically stable, saturating well room air, and are neurologically intact. On physical examination she is appropriately alert and oriented with a GCS of 15. Her heart and lungs are clear to auscultation bilaterally. She has mild pharyngeal erythema but she is not experiencing a sore throat. Uvula is in the midline. She does not have any cervical lymphadenopathy present. Abdomen is soft and nontender to palpation. She has no lower extremity erythema or edema. Differential diagnosis includes viral syndrome, urinary tract infection, upper respiratory infection, among others. On otoscopic exam the patient does not have any tympanic membrane bulging or erythema to suggest acute otitis media. Given that the patient was describing cysts in her genital region, I did perform a genitourinary exam with the assistance of a nurse lumber sticker. There is a very mildly erythematous lesion in the right groin that is not indurated or fluctuant. There is no evidence of Bartholin gland cyst or abscess present on my examination. There is no obvious lymphadenopathy in the groin either to suggest potential sexually transmitted disease. Workup was initiated with a mini respiratory swab as well as hematologic labs and a urinalysis. We have also obtained an EKG. EKG as interpreted above is normal. Labs personally interpreted by me demonstrate no evidence of leukocytosis. No actionable anemia. She has no electrolyte derangements or evidence of acute kidney injury. Urinalysis shows no leukocyte esterase and no nitrates. There is 3-5 white cells and trace bacteria. I do not feel that this is consistent with urinary tract infection at this time. Mini viral respiratory panel was negative for COVID, influenza, and rhinovirus. My overall impression of this case is that the patient is very likely experiencing a viral syndrome which is manifesting with fevers, chills, body aches, and nasal congestion. I have asked her to take Tylenol and ibuprofen at home to assist in symptomatic control. I have given her return precautions in the event she develops any new or worsening symptoms. At this time all questions have been answered and all parties are agreeable with the decision to discharge home Critical Care Critical Care Time Critical Care Time: No
[2025-06-14] MEDS: LACTATED RINGERS 1000ML 1,000 ML 999 ML IV (10:37)
[2025-06-14 10:38] LABS: Coronavirus 19, PCR Not Detected (NotDetected); Influenza A, PCR Not Detected (NotDetected); Influenza B, PCR Not Detected (NotDetected)
[2025-06-14 10:54] LABS: Microscopic, Urine URINE MICROSCOPIC (MICROSCOPIC)
[2025-06-14 10:54] LABS: Hematocrit 43.0 % (37.0-47.0); Hemoglobin 15.2 g/dL (12.2-16.2); Immature Granulocytes % 0.4 %; Mean Corpuscular HGB Conc 35.3 g/dL (31.8-35.4); Mean Corpuscular Hemoglobin 30.8 pg (27.0-31.2); Mean Corpuscular Volume 87.2 fl (81-99); Nucleated Red Blood Cells % 0 %; Platelet Count 163 K/mm3 (142-424); Red Blood Count 4.93 M/mm3 (4.20-5.40); Red Cell Distribution Width-SD 40.2 fL; White Blood Count 5.0 K/mm3 (4.8-10.8)
[2025-06-14 11:09] LABS: Bilirubin,Urine Negative (Negative); Color,Urine YELLOW (Yellow); Glucose,Urine (UA) Negative (Negative); Ketones,Urine Negative (Negative); Leukocyte Esterase,Urine Negative (Negative); PH,Urine 6.5 (5.0-8.5); Protein,Urine Negative (Negative); Specific Gravity, Urine 1.020 (1.005-1.030); Urobilinogen,Urine 0.2 EU/dl (0.2)
[2025-06-14 11:18] LABS: Bacteria,Urine Trace /lpf; RBC,Urine Occasional #/hpf (0-3); Squamous Epithelial Cell,Urine Occasional #/hpf (0-5)
[2025-06-14 11:45] LABS: Chloride 107 mmol/L (98-107)
[2025-06-14 11:46] LABS: Albumin Level 4.6 g/dl (3.5-5.0); Potassium 3.9 mmoL/L (3.5-5.1); Sodium 135 mmol/L (136-145)
[2025-06-14 11:48] LABS: Alanine Aminotransferase 20 U/L (12-78); Albumin/Globulin Ratio 1.4 (1.1-1.8); Alkaline Phosphatase 92 U/L (38-126); Anion Gap 10.9 mEq/L (5-15); Aspartate Amino Transferase 32 U/L (14-36); Bilirubin,Total 0.6 mg/dl (0.2-1.3); Blood Urea Nitrogen 9 mg/dl (7-17); Carbon Dioxide 21 mmol/L (22.0-30.0); Creatinine Clearance Estimated 115 mL/min (50-200); Creatinine,Serum 0.80 mg/dl (0.52-1.04); Estimated Glomerular Filt Rate 79 ml/min (>60); GFR (African American) 95 ML/MIN (>60); Globulin 3.3 g/dL (1.3-3.2); Total Protein,Serum 7.9 g/dl (6.3-8.2)
[2025-06-14 11:49] LABS: Calcium 8.7 mg/dl (8.4-10.2); Glucose 115 mg/dl (74-100)
[2025-06-14 12:42] LABS: Hepatitis C Ab Qual. W/ RFX NEGATIVE (Negative)
== END 2025-06-14 12:24 | disposition home or self-care (01) ==
PROVIDERS: Emergency Provider Student in an Organized Health Care Education/Training Program; PCP Family Medicine
DX: R50.9 Fever, unspecified (principal); R51.9 Headache, unspecified; B34.9 Viral infection, unspecified; H93.11 Tinnitus, right ear; F17.200 Nicotine dependence, unspecified, uncomplicated
CPT/HCPCS: 80053; 81001; 85025; 86803; 87389; 87631; 93005; 96365; 99284; J7120

== ENCOUNTER 2025-06-18 20:11 | Emergency (ER) | payer MEDICAID, SELFPAY ==
[2025-06-18 20:25] VITALS: BP 131/100; PULSE 86; RESP 16; TEMP 36.9; O2SAT 98
--- OUTSIDE RECORDS SUMMARY | 2025-06-18 20:31 | XMS_ITS | Referral Summary ---
Author Organization [email or web address] ([place], [place], [place], [place]) Address [address] [place] [address] Care Team Providers Care Community Action Worker Name Role Phone Corrina Helton MD Primary Care Provider [phone] Encounters Date Type Department Care Team Description 04/10/2025 1:15 PM EDT Clinical Support [facility] Gastroenterology [address] [place] [address] Aida Del Toro APRN Miller, [...] Treatment Not on file Insurance [facility] Care Teams Community Action Worker Relationship Specialty Start Date End Date Corrina Helton MD [facility] [place] [address] [place] [address] PCP - General Internal Medicine 04/10/25
--- OUTSIDE RECORDS SUMMARY | 2025-06-18 20:31 | XMS_ITS | Clinical Summary ---
Author Organization [employer] ([place], [place], [place], [place]) Address [address] [place] [address] Care Team Providers Care Recreation Adviser Name Role Phone Corrina Helton MD Primary Care Provider [phone] Allergies No known active allergies Medications propranoloL (INDERAL LA) 60 MG 24 hr capsule Take 1 capsule (60 mg total) by mouth daily. 08/13/2024 Active Encounters Date Type Department Care Team Description 04/10/2025 1:15 PM EDT Clinical Support [facility] Gastroenterology [address] [place] [phone] Aida Del Toro APRN Miller, Matthew, [...] season) 2024 Influenza Vaccine (#1) [address] [facility] Care Teams Recreation Adviser Relationship Specialty Start Date End Date Corrina Helton MD [address] [place] [address] PCP - General Internal Medicine 04/10/25
[2025-06-18 21:01] VITALS: BP 116/81; PULSE 81; O2SAT 97
[2025-06-18 21:01] LABS: Hematocrit 43.7 % (37.0-47.0); Hemoglobin 15.4 g/dL (12.2-16.2); Immature Granulocytes % 0.3 %; Mean Corpuscular HGB Conc 35.2 g/dL (31.8-35.4); Mean Corpuscular Hemoglobin 30.2 pg (27.0-31.2); Mean Corpuscular Volume 85.7 fl (81-99); Nucleated Red Blood Cells % 0 %; Platelet Count 152 K/mm3 (142-424); Red Blood Count 5.10 M/mm3 (4.20-5.40); Red Cell Distribution Width-SD 39.8 fL; White Blood Count 5.9 K/mm3 (4.8-10.8)
--- NOTE | 2025-06-18 21:05 | ED_ITS ---
Discharge Plan Disposition Patient Disposition: Home, Self-Care Prescriptions Prescriptions: No Action propranolol 60 mg capsule,extended release 24 hr 60 mg PO DAILY Qty: 60 1RF Mirena 21 mcg/24hr (up to 8 yrs) 52 mg intrauterine device 1 device intrauterine doxycycline hyclate 100 mg tablet 100 mg PO BID Qty: 20 0RF Referrals Follow up/Referrals: Mor Reddy MD [Primary Care Provider, Family Practice] - See instructions Activity Restrictions/Add. Instructions Additional Instructions/Restrictions: Continue to take the antibiotics as prescribed. You can continue to take Tylenol and ibuprofen to help with symptoms. Follow-up with dermatology as well as your NUCLEAR CRITICALITY SAFETY ENGINEER and PCP. If you develop any new or worsening symptoms, or if you become concerned for your health for any reason, return to the emergency department for evaluation. Clinical Impressions Clinical Impression: Skin lesion Print Language Print Language: Romansh Discharge ED Provider: Juan Antonio Meyer General Adult HPI General Chief complaint: Fever Stated complaint: Fever,cysts on legs with drainage Time Seen by Provider: 06/18/25 20:24 Mode of Arrival: Ambulatory Source of Information: Patient Description of Symptoms (Recalled from ER Triage Doc. by RN): pt presents with 3 draining cysts in her groin she was seen previously here about a week ago, she has been running fevers and feeling generally unwell now. pt reports her bp has been elevated and she has not been able to manage it as well. History of Present Illness HPI narrative: Yee Harrington is a 40y female with a history of recurrent cysts in her groin area who presents to the emergency department for complaints of ruptured cyst in her groin and full body pain and fevers. Patient states that in May, she developed cyst in her groin that would rupture at times. She states that this all started after she had an IUD placed and believes that the hormones may be playing a role. She has been seen by her PCP and in the emergency department over the last few days as she has been hypertensive and reported fevers at home of 100.1 - 103 ?F. She did take ibuprofen approximately 1 hour prior to arrival. She states that she was evaluated on Tuesday in the emergency department and physician pressed on her cyst and since then, they have become more swollen and ruptured, draining yellow fluid. She is concerned she may have an infection in her bloodstream. She notes that she was referred to dermatology and has follow-up with her NUCLEAR CRITICALITY SAFETY ENGINEER to have her IUD removed soon. She did state that yesterday, she called that an urgent treatment center and was put on doxycycline, which she has taken 1 dose. Related Data Home Medications ?Medication ?Instructions ?Recorded ?Confirmed levonorgestrel (Mirena) 1 device intrauterine 06/17/25 Previous Rx's ?Medication ?Instructions ?Recorded propranolol 60 mg capsule,24 60 mg PO DAILY #60 caps 1 hr,extended release doxycycline hyclate 100 mg tablet 100 mg PO BID #20 ta bs 06/17/25 Allergies Allergy/AdvReac Type Severity Reaction Status Date / Time No Known Allergies Allergy Verified 06/17/25 11:22 [facility] Disclaimer: The information contained in this section may have been updated after the patient was seen, as this information can be updated by other users. Medical History Lightheaded Anxiety Gastroesophageal reflux disease Palpitations Insomnia Generalized hyperhidrosis Surgical History History of delivery History of bilateral salpingectomy History of tonsillectomy Family History Other Cancer Hypertension Stroke Social History Smoking Status: Current every day smoker alcohol intake: never substance use type: denies use and marijuana current occupational status: employed Travel in the last 8 weeks?: None Have you lived/traveled outside [place] in past 30 days?: No Contact w/someone who lives/traveled outside US past 30 days?: No Exposure to someone with infectious disease in past 14 days?: No Do you have a fever (greater than 100.4 F or 38 C)?: No Have you tested positive for COVID-19?: No Exposed to someone with COVID-19 in past 14 days?: No Do you have a sore throat?: No Do you have a cough?: No Do you have any weakness?: No Do you have any diarrhea?: No Are you experiencing any unusual bleeding?: No Do you have any muscle aches/pain?: No Do you have any abdominal pain?: No Are you experiencing loss of taste or smell?: No ROS Obtained: Yes Systems reviewed as appropriate & no additional complaints except as documented Physical Exam General General appearance: alert, in no apparent distress and anxious Head Head exam: atraumatic Eye Eye exam: Present normal appearance ENT ENT exam: Present normal external ear exam Neck Neck exam: Present full ROM Chest Chest inspection: Present symmetric chest wall rise Respiratory Respiratory exam: Present normal lung sounds bilaterally; Absent respiratory distress Cardiovascular Cardiovascular exam: Present regular rate and normal rhythm Abdominal Exam Abdominal exam: Present soft; Absent tenderness or guarding Bimanual exam: Present other (Scattered areas of cystic appearing lesions over the bilateral groins and the iliac folds. No fluctuance. Bilateral wounds appear to be draining clear/yellow fluid.) Extremities Exam Extremities exam: Present normal inspection Back Exam Back exam: Present normal inspection Neurological Exam Neurological exam: Present alert and oriented X3 Psychiatric Psychiatric exam: Present normal affect Skin Skin exam: Present warm and dry Medical Decision Making Medical Records Screening: Per USPSTF and CDC recommendations, given the prevalence of disease in our region, it is our hospital?s policy to screen for HIV and viral Hepatitis for all patients aged 18 and over and those with ongoing risk factors. Ayad Inquiry Pt receiving controlled substance: No Vital Signs: 06/18/25 20:25 06/18/25 21:01 06/18/25 21:30 Temperature 98.4 F Temperature Source Oral Pulse Rate 81 74 Pulse Rate [Right] 86 Respiratory Rate 16 Blood Pressure 116/81 125/86 Blood Pressure [Right Arm] 131/100 H Blood Pressure Mean [Right Arm] 110 02 Sat by Pulse Oximetry 98 97 96 Oxygen Delivery Method 06/18/25 22:19 06/18/25 22:19 Temperature 98.2 F Temperature Source Oral Pulse Rate 69 Pulse Rate [Right] Respiratory Rate 20 Blood Pressure 131/85 Blood Pressure [Right Arm] Blood Pressure Mean [Right Arm] 02 Sat by Pulse Oximetry Oxygen Delivery Method Room Air Lab Data Lab Results 06/18/25 20:37: WBC 5.9, RBC 5.10, Hgb 15.4, Hct 43.7, MCV 85.7, MCH 30.2, MCHC 35.2, RDW 12.6, Plt Count 152, MPV 11.4 H, Neut % (Auto) 35.0 L, Lymph % (Auto) 55.1 H, Sac % (Auto) 5.5, Eos % (Auto) 3.1, Baso % (Auto) 1.0, Neut # (Auto) 2.1, Lymph # (Auto) 3.2, Sac # (Auto) 0.3, Eos # (Auto) 0.2, Baso # (Auto) 0.1, Sodium 139, Potassium 3.9, Chloride 107, Carbon Dioxide 22, Anion Gap 13.9, BUN 9, Creatinine 0.90, Estimated Creat Clear 102, Estimated GFR 69, Est GFR ( Amer) 83, Glucose 121 H, Lactate 0.9, Calcium 9.2, Total Bilirubin 0.6, AST 46 H, ALT 38, Alkaline Phosphatase 103, C-Reactive Protein 84.1 H, Total Protein 8.4 H, Albumin 4.6, Globulin 3.8 H, Albumin/Globulin Ratio 1.2 06/18/25 20:37 06/18/25 20:37 Orders (Tests/Meds): ORDERS Category Date Time Status CBC w/Auto Diff [Complete Blood Count Auto Diff] Stat Lab 06/18/25 20:37 Completed CMP [Comprehensive Metabolic Panel] Stat Lab 06/18/25 20:37 Completed CRP [C-Reactive Protein] Stat Lab 06/18/25 20:37 Completed Lactic Acid Stat Lab 06/18/25 20:37 Completed Medical Decision Narrative: Yee Harrington is a 40y female with a history of recurrent cysts in her groin area who presents to the emergency department for complaints of ruptured cyst in her groin and full body pain and fevers. Patient states that in May, she developed cyst in her groin that would rupture at times. She states that this all started after she had an IUD placed and believes that the hormones may be playing a role. She has been seen by her PCP and in the emergency department over the last few days as she has been hypertensive and reported fevers at home of 100.1 - 103 ?F. She did take ibuprofen approximately 1 hour prior to arrival. She states that she was evaluated on Tuesday in the emergency department and physician pressed on her cyst and since then, they have become more swollen and ruptured, draining yellow fluid. She is concerned she may have an infection in her bloodstream. She notes that she was referred to dermatology and has follow-up with her NUCLEAR CRITICALITY SAFETY ENGINEER to have her IUD removed soon. She did state that yesterday, she called that an urgent treatment center and was put on doxycycline, which she has taken 1 dose. Patient was told by the previous ER physician and her PCP that they believe this to be hidradenitis suppurativa as she has had cyst that have shown up on her neck and underneath her left breast in the past as well. On arrival, patient's blood pressure 131/100, heart rate within normal meds, afebrile, oxygen saturation 98% SpO2 on room air. Physical exam, as stated above, revealed overall well-appearing female in no distress. She does not appear toxic. She has a few small cystic areas along the groin and the iliac fold, 1 on the left and 1 on the right that appears to be draining. It is mildly tender. Physical exam is otherwise grossly unremarkable. Due to patient's fevers in the setting of cystic structures with draining fluid, will check basic labs, CBC, CMP, CRP and lactate to rule out sepsis. I do agree that these lesions appear to be consistent with hidradenitis suppurativa and she does have referral already in place for purchasing director. I have low concern for Bartholin gland cyst at this time given location of the wounds that appear to be more in the skin folds of the hips/groin. CT abdomen pelvis with IV contrast was considered, however I have low concern for any intra-abdominal abscess or deep abscess and felt that this is not indicated at this time. Patient has no leukocytosis without neutrophilia. CMP unremarkable and nonactionable. CRP is elevated at 84.1, however she is afebrile and does not meet SIRS/sepsis criteria. CRP is likely elevated given localized infection of the cysts. I explained in detail with patient that I have low concern for sepsis at this time and recommend that she continue her doxycycline as prescribed for localized infection in the groin. I did encourage her to follow- up with her NUCLEAR CRITICALITY SAFETY ENGINEER as well as purchasing director for further management and gave return precautions for any evidence of worsening infection. All questions were answered. She demonstrated understanding and was in agreement with this plan. She was then discharged from the emergency department in stable condition. Critical Care Critical Care Time Critical Care Time: No
[2025-06-18 21:06] LABS: Albumin Level 4.6 g/dl (3.5-5.0); Chloride 107 mmol/L (98-107); Potassium 3.9 mmoL/L (3.5-5.1); Sodium 139 mmol/L (136-145)
[2025-06-18 21:08] LABS: Blood Urea Nitrogen 9 mg/dl (7-17)
[2025-06-18 21:09] LABS: Alanine Aminotransferase 38 U/L (12-78); Albumin/Globulin Ratio 1.2 (1.1-1.8); Alkaline Phosphatase 103 U/L (38-126); Anion Gap 13.9 mEq/L (5-15); Aspartate Amino Transferase 46 U/L (14-36); Bilirubin,Total 0.6 mg/dl (0.2-1.3); Calcium 9.2 mg/dl (8.4-10.2); Carbon Dioxide 22 mmol/L (22.0-30.0); Creatinine Clearance Estimated 102 mL/min (50-200); Creatinine,Serum 0.90 mg/dl (0.52-1.04); Estimated Glomerular Filt Rate 69 ml/min (>60); GFR (African American) 83 ML/MIN (>60); Globulin 3.8 g/dL (1.3-3.2); Glucose 121 mg/dl (74-100); Total Protein,Serum 8.4 g/dl (6.3-8.2)
[2025-06-18 21:30] VITALS: BP 125/86; PULSE 74; O2SAT 96
[2025-06-18 21:42] LABS: C-Reactive Protein 84.1 mg/L (0-4)
[2025-06-18 22:19] VITALS: BP 131/85; PULSE 69; RESP 20; TEMP 36.8; O2SAT 94
== END 2025-06-18 22:29 | disposition home or self-care (01) ==
PROVIDERS: Emergency Provider Student in an Organized Health Care Education/Training Program; PCP Family Medicine
DX: L98.9 Disorder of the skin and subcutaneous tissue, unspecified (principal)
CPT/HCPCS: 80053; 83605; 85025; 86140; 99283

== ENCOUNTER 2025-08-02 10:45 | Outpatient (CLI) | payer MEDICAID, SELFPAY ==
--- OUTSIDE RECORDS SUMMARY | 2025-08-02 10:51 | XMS_ITS | Encounter Summary ---
Author Organization [facility] ([place], [place], [place], [place]) Address [address] [place] [address] Care Team Providers Care Card Lacer Jacquard Name Role Phone Corrina Helton MD Primary Care Provider [phone] Reason for Referral * Mammography (Routine) - New Request Specialty Diagnoses / Procedures Referred By Harshad chery Referred To Contact Radiology Diagnoses Screening mammogram for breast cancer Procedures MM digital mammo screen with domenica bilateral [facility], Provider Not In The System, [place] [address] Referral ID Status Reason Start Date Expiration Date V isits Requested Visits Authorized [id number] New Request 07/26/2025 07/26/2026 1 1 Encounter Details Date Type Department Care Team (Late Contact Info) Description 07/26/2025 Outside Orders [facility] Central Scheduling [address] [place] [id number] [facility], Provider Not In The System, [place] [address] Screening mammogram for breast cancer (Primary Dx) Social History Tobacco Use Types Packs/Day Years Used Date Smoking Tobacco: Every Day Cigarettes Smokeless Tobacco: Never Alcohol Use Standard Drinks/Week Comments Yes 0 (1 standard drink = 0.6 oz pur e alcohol) Comments Unknown Sex and Gender Information Value Date Recorded Sex Assigned at Not on file Legal Sex Female 5:36 PM CDT Gender Identity Not on file Sexual Orientation Not on file documented as of this encounter Plan of Treatment Upcoming Encounters Date Type Department Care Team (Late Contact Info) Description 10/25/2025 1:30 PM EST Appointment [facility] Breast Imaging [address] [place] [address] [facility], Provider Not In The System, [place] [address] Scheduled Orders Name Type Priority Associated Diagnoses Orde r Schedule MM digital mammo screen with domenica bilateral Imaging Routine Screening mammogram for breast cancer Expected: 07/26/2025, Expires: 08/26/2026 documented as of this encounter Visit Diagnoses Diagnosis Screening mammogram for breast cancer- Primary documented in this encounter Care Teams Card Lacer Jacquard Relationship Specialty Start Date End Date Corrina Helton MD [facility] [place] [address] [place] [address] PCP - General Internal Medicine 04/10/25 documented as of this encounter
--- OUTSIDE RECORDS SUMMARY | 2025-08-02 10:51 | XMS_ITS | Data Portability ---
Author Organization [facility] [place] Address [address] [place] [address] Assessment Encounter Date Assessment Date Assessment LastModified by Organization Details LastModified Time 10/28/2022 10/28/2022 Trich SAMANTHA. Mirena insertion. Pelvic rest for 24 hrs. F/u 6 wks for TVUS IUD check. [email or web address] Not available 10/28/2022 16:12:03 12/09/2022 12/09/2022 Nl IUD check. F/u prn or 1 year. [email or web address] Not available 12/09/2022 17:18:40 Plan of Treatment Reminders Order Date Submit Date Provider Last Modified By Organization Details Last Modified Time Details Appointments None recorded. Lab pap, IG + reflex HPV 2024 025 [place] [facility], [address] [place] [address], [place], [address], 5 11:08:12 trichomonas vaginalis RNA 2022 023 [employer] [facility], [address], [place], [address], 3 19:41:32 test, urine 2022 023 [email or web address] 5 [facility], [address] [place] [address], [place], [address], 3 16:11:34 HIV 1+2 Ab + HIV1 p24 Ag, quantitativ e immunoassay , serum 2021 [employer] [facility], [address], [place], [address], 2 10:23:00 RPR (rapid plasma reagin), serum 2021 [employer] [facility], [address], [place], [address], 2 10:23:00 HBsAg (hepatitis B surface Ag), serum 2021 [employer] [facility], [address], [place], [address], 2 10:22:59 hepatitis C virus Ab, serum 2021 [employer] [facility], [address], [place], [address], 10:22:59 pap, LB + CT/NG + HR HPV 2021 [employer] [facility], [address], [place], [address], 12:06:44 Referral None recorded. Procedures removal, intrauterin e device (PROC) 2024 025 [email or web address] Not available 5 08:01:07 Surgeries None recorded. Imaging MAMMO, screening, digital, bilateral 2024 025 [email or web address] [facility] ([facility]), [address], [place], [address], 5 07:24:41 Medication Orders Flagyl 500 mg tablet 2021 022 OSM[facility], [address], [place], [address], 14:39:43 Patient TargetsNo targets recorded. Patient Instructions Encounter Date Encounter Id Patient Instructions Last Modified By Organization Details Last Modified Time 06/25/2025 [id number] pap q 5 yrs mammography every 1-2 yrs PCP yearly for a wellness exam pelvic prn [email or web address] Not available 06/25/2025 11:50:23 Reason for Referral None Reported. Results Created Date Observation Date Name Description Value Unit Range Abnormal Flag Note LastModifiedBy Organization Detail LastModifiedTime 08/30/20 22 09/03/2022 THINP REP PAP AND HR HPV DNA, C. TRACH OMATI S AND N. GONOR RHOEA E clinical information: normal None given Not Available [facility] [place] [facility] [address], [place], [address], 09/03/2022 12:06:44 08/30/20 22 09/03/2022 THINP REP PAP AND HR HPV DNA, C. TRACH OMATI S AND N. GONOR RHOEA E LMP: normal NONE GIVEN Not Available [facility] [place] [facility] [address], [place], [address], 09/03/2022 12:06:44 08/30/20 22 09/03/2022 THINP REP PAP AND HR HPV DNA, C. TRACH OMATI S AND N. GONOR RHOEA E prev. Pap: normal NONE GIVEN Not Available [facility] [place] [facility] [address], [place], [address], 09/03/2022 12:06:44 08/30/20 22 09/03/2022 THINP REP PAP AND HR HPV DNA, C. TRACH OMATI S AND N. GONOR RHOEA E prev. BX: normal NONE GIVEN Not Available [facility] [place] [facility] [address], [place], [address], 09/03/2022 12:06:44 08/30/20 22 09/03/2022 THINP REP PAP AND HR HPV DNA, C. TRACH OMATI S AND N. GONOR RHOEA E source: normal Cervi x, Endoc ervix Not Available [facility] [place] [facility] [address] [facility], [place], [address], 09/03/2022 12:06:44 08/30/20 22 09/03/2022 THINP REP PAP AND HR HPV DNA, C. TRACH OMATI S AND N. GONOR RHOEA E statement of adequacy: normal Satis facto ry for evalu ation . Endoc ervic al/tr ansfo rmati on zone compo nent prese nt. Age and/o r menst rual statu s not provi ded Parti ally obscu ring infla mmati on Not Available [facility] [place] [facility] [address] [facility], [place], [address], 09/03/2022 12:06:44 08/30/20 22 09/03/2022 THINP REP PAP AND HR HPV DNA, C. TRACH OMATI S AND N. GONOR RHOEA E interpretati on/result: normal Negat salina for intra epith elial lesio n or malig jordy . Not Available [facility] [place] [facility] [address] [facility], [place], [address], 09/03/2022 12:06:44 08/30/20 22 09/03/2022 THINP REP PAP AND HR HPV DNA, C. TRACH OMATI S AND N. GONOR RHOEA E infection: normal Trich omona s vagin eusebia ident ified . Not Available [facility] [place] [facility] [address], [place], [address], 09/03/2022 12:06:44 08/30/20 22 09/03/2022 THINP REP PAP AND HR HPV DNA, C. TRACH OMATI S AND N. GONOR RHOEA E cytotechnolo gist: normal MSJ, CT( CP) CT Scree corie locat ion: [facility] [address] [facility] [place] [address] Not Available [facility] [place] [facility] [address], [place], [address], 09/03/2022 12:06:44 08/30/20 22 09/03/2022 THINP REP PAP AND HR HPV DNA, C. TRACH OMATI S AND N. GONOR RHOEA E comment EXPLA NATOR Y NOTE: The Pap is a scree corie test for cervi angelica cance r. It is not a diagn ostic test and is subje ct to false negat salina and false posit salina resul ts. It is most relia ble when a satis facto ry sampl e, regul gamaliel obtai suad, is submi tted with relev ant clini angelica findi ngs and histo ry, and when the Pap resul t is evalu ated along with histo nuno and curre nt clini angelica infor matio n. Not Available [facility] [place] [facility] [address], [place], [address], 09/03/2022 12:06:44 08/30/20 22 09/03/2022 THINP REP PAP AND HR HPV DNA, C. BARBI OMATI S AND N. GONOR RHOEA E HPV DNA, high risk, cervical Not Detect ed not detect ed normal Not Detec mendy High Risk HPV types (16,1 8,31, 33,35 ,39,4 5,51, 52, 56,58 ,59,6 6,68) were not detec mendy. Other HPV types which cause anoge nital lesio ns may be prese nt. The signi fican ce of the other types of HPV in [facility] sses has not been estab pito maldonado y: Real Time PCR Not Available [facility] [place] [facility] [address], [place], [address], 09/03/2022 12:06:44 08/30/20 22 09/03/2022 THINP REP PAP AND HR HPV DNA, C. TRACH OMATI S AND N. GONOR RHOEA E chlamydia trachomatis RNA, tma, urogenital NOT DETECT ED not detect ed normal Not Available [facility] [place] [facility] [address], [place], [address], 09/03/2022 12:06:44 08/30/20 22 09/03/2022 THINP REP PAP AND HR HPV DNA, C. TRACH OMATI S AND N. GONOR RHOEA E neisseria gonorrhoeae RNA, tma, urogenital NOT DETECT ED not detect ed normal Not Available [facility] [place] [facility] [address] [place], [address], 09/03/2022 12:06:44 08/30/20 22 09/03/2022 THINP REP PAP AND HR HPV DNA, C. TRACH OMATI S AND N. GONOR RHOEA E comment The roxanne tical perfo rmanc e ryan cteri stics of this assay , when used to test SureP ath(T M) speci mens have been deter mined by [facility]. The modif icati ons have not been clear ed or appro inge by the FDA. This assay has been valid ated pursu ant to the CLIA regul ation s and is used for clini angelica purpo ses. For addit ional infor aldo quevedo e refer to https ://ed ucati on.qu estdi Wapp[employer]. com/f aq/FA Q154 (This link is being provi ded for infor melanie deras/ educa nathan l purpo ses only. ) Not Available [facility] [place] [facility] [address] [facility], [place], [address], 09/03/2022 12:06:44 09/16/20 22 09/17/2022 HEPAT ITIS B SURFA CE ANTIG EN W/REF L CONFI RM hepatitis B surface antigen NON-RE ACTIVE non-re active normal Not Available [facility] [place] [facility] [address] [facility], [place], [address], 09/17/2022 13:14:12 09/16/20 22 09/17/2022 HEPAT ITIS C AB W/REF L TO HCV RNA, QN, PCR hepatitis C antibody NON-RE ACTIVE non-re active normal Not Available [facility] [place] [facility] [address] [place], [address], 09/17/2022 15:23:49 09/16/20 22 09/17/2022 HEPAT ITIS C AB W/REF L TO HCV RNA, QN, PCR index 0.06 <1.00 normal HCV antib lila was non-r eacti ve. There is no labor atory evide nce of HCV infec tion. In most cases , no furth er actio n is requi red. Howev er, if recen t HCV expos ure is suspe cted, a test for HCV RNA (test code 44715 ) is sugge sted. For addit ional infor matio n pleas e refer to http: //[facility] daisy engel stdia gnost ics.c om/fa q/FAQ 22v1 (This link is being provi ded for infor matio nal/ educa nathan l purpo ses only. ) Not Available [facility] [place] [facility] [address] [facility], [place], [address], 09/17/2022 15:23:49 09/16/20 22 09/17/2022 HIV 1/2 ANTIG EN/AN TIBOD Y,FOU RTH GENER ATION W/RFL HIV Ag/Ab, 4TH gen NON-RE ACTIVE non-re active normal HIV-1 antig en and HIV-1 /HIV- 2 antib odies were not detec mendy. There is no labor atory evide nce of HIV infec tion. PLEAS E NOTE: This infor matio n has been discl osed to you from recor ds whose confi denti ality may be prote cted by state law. If your state requi res such prote ction , then the state law prohi bits you from nava deluca any furth er discl osure of the infor matio n witho ut the speci fic writt en conse nt of the perso n to whom it perta ins, or as other montalvo permi tted by law. A gener al autho rizat ion for the relea se of medic al or other infor matio n is NOT suffi cient for this purpo se. For addit ional infor melanie n plemarshall e refer to http: //[facility] da[facility] deras.que stdia gnost ics.c om/fa q/FAQ 106 (This link is being provi ded for infor matio nal/ educa nathan l purpo ses only. ) The perfo rmanc e of this assay has not been clini ti valid ated in patie nts less than 2 years old. Not Available [facility] [place] [facility] [address] [place], [address], 09/17/2022 15:12:03 09/16/20 22 09/17/2022 RPR (DX) W/REF L TITER AND CONFI RMATO RY TESTI NG RPR (DX) w/refl titer and confirmatory testing NON-RE ACTIVE non-re active normal Not Available [facility] [place] [facility] [address] [facility] [place], [address], 09/17/2022 10:23:00 10/28/19 23 10/29/2022 TRICH OMONA S VAGIN EUSEBIA RNA, QL TMA trichomonas vaginalis RNA, ql tma NOT DETECT ED not detect ed normal For addit ional jeremier aldo quevedo e refer to http: //[facility] daisy deras.que stdia gnost ics.c om/ faq/T miranda bedolla tma (This link is being provi ded for infor matio nal/ educa nathan l purpo ses only. ) Not Available [facility] [place] [facility] [address] [facility] [place], [address], 10/29/2022 19:41:32 10/28/19 23 10/28/2022 pregn silvana test, urine HCG negati ve Not Available [facility] [address] [facility], [place], [address], 10/28/2022 15:40:27 06/25/20 25 06/26/2025 IGP,A PTIMA HPV,A GE GDLN age gdln acog testing 30-65 Not Available [facility]) [address] [facility], [place], [address], 06/27/2025 11:08:12 06/25/20 25 06/26/2025 IGP,A PTIMA HPV,A GE GDLN HPV aptima Negati ve negati ve This nucle ic acid ampli ficat ion test detec ts fourt een high- risk HPV types (16,1 8,31, 33,35 ,39,4 5,51, 52,56 ,58,5 9,66, 68) witho ut diffe renti ation . Not Available [facility] ([facility]) [address] [facility], [place], [address], 06/27/2025 11:08:12 06/25/20 25 06/27/2025 IGP,A PTIMA HPV,A GE GDLN diagnosis: Commen t NEGAT SALINA FOR INTRA EPITH ELIAL LESTYLER N OR CARLA KRAMER . Not Available [facility] ([facility]) [address] [facility], [place], [address], 06/27/2025 11:08:12 06/25/2006/27/2025 IGP,A PTIMA HPV,A GE GDLN specimen adequacy: Commen t Satis facto ry for evalu ation . Endoc ervic al and/o r squam ous metap lasti c cells (endo cervi angelica compo nent) are prese nt. Not Available [facility] ([facility]) [address] [facility], [place], [address], 06/27/2025 11:08:12 06/25/20 25 06/27/2025 IGP,A PTIMA HPV,A GE GDLN clinician provided ICD10: Delfin t Z01.4 19 Not Available [facility] ([facility]) [address] [facility], [place], [address], 06/27/2025 11:08:12 06/25/20 25 06/27/2025 IGP,A PTIMA HPV,A GE GDLN performed by: Delfin Mullins, Cytol ogist (ASCP ) Not Available [facility] ([facility]) [address] [place], [address], 06/27/2025 11:08:12 06/25/20 25 06/27/2025 IGP,A PTIMA HPV,A GE GDLN . . Not Available [facility] ([facility]) [address] [place], [address], 06/27/2025 11:08:12 06/25/20 25 06/27/2025 IGP,A PTIMA HPV,A GE GDLN note: Delfin chery The Pap smear is a scree corie test desig suad to aid in the detec tion of kasia ligna nt and malig nant condi tions of the uteri ne cervi x. It is not a diagn ostic proce dure and shoul d not be used as the sole means of detec ting cervi angelica cance r. Both false -posi tive and false -nega tive repor ts do occur . Not Available [facility] ([facility]) [address] [place], [address], 06/27/2025 11:08:12 06/25/20 25 06/27/2025 IGP,A PTIMA HPV,A GE GDLN test methodology: Delfin chery This liqui d based ThinP rep(R ) pap test was scree suad with the use of an image guide patricia systbahman m. Not Available [facility] ([facility]) [address] [place], [address], 06/27/2025 11:08:12 06/25/20 25 06/27/2025 IGP,A PTIMA HPV,A GE GDLN HPV genotype reflex Delfin chery Crite raheel not met, HPV Genot ype not perfo rmed. Not Available [facility] ([facility]) [address] [place], [address], 06/27/2025 11:08:12 10/28/19 23 10/28/2022 US, pelvi s No observ ation record ed. [email or web address] [address], [place], [address], 11/01/2022 13:29:00 12/09/19 23 12/09/2022 US, trans vagin al No observ ation record ed. [email or web address] [address], [place], [address], 12/09/2022 17:03:25 Result Notes None recorded. Problems Name Problem SNOMED Code Status Onset Date Resolution Date Notes Provider Name and Address Organization Details Recorded Time Menorrhagia 580971779 Active 2021 aHl Wang III, MD [address] [place] [address], [address], [employer] 2 14:33:41 Surveillanc e of intrauterin e device contracepti on done [id number] 04 Active 2022 Hal Wang III, MD [address] [place] [address], [address], [employer] 3 17:19:02 Problem Notes None recorded. Procedures Surgical History Date Name Laterality Status Provider Name and Address Organization Details Recorded Time 06/25/20 25 IUD Removal completed Dora Alba CNM [address] [place] [address], [address], [employer] 06/24/2025 18:39:29 10/28/19 23 IUD Insertion completed Hal Wang III, MD [address] [place] [address], [address], [employer] 10/28/2022 16:11:26 10/17/19 22 Most Recent Mammogram completed Yaima Forrest [employer] 06/25/2025 11:34:39 03/17/20 19 Date of Last Pap Smear completed SUSAN UGALDE [place] - [facility] 08/30/2022 09:35:14 Caesarean Section completed [employer] 08/30/2022 09:41:38 Caesarean Section completed [employer] 08/30/2022 09:41:45 ligation of fallopian tube completed [employer] 08/30/2022 09:41:53 tonsillectomy completed [employer] 08/30/2022 09:42:00 Imaging Results None recorded. Procedure Notes None recorded. Medical Equipment None Reported. Allergies No known drug allergies Medications Name Sig Start Date Stop Date Status Note LastModified by Organization Details LastModified Time propranolol ER 60 mg capsule,24 hr,extended release TAKE 1 CAPSULE BY MOUTH EVERY DAY 2023 active Not Available Not Available Not Avai lable metronidazole 500 mg tablet Take 4 tablets as needed by oral route. active Not Available Not Available No t Available Vitals Date Recorded Body height Body mass index (BMI) Body weight Systolic And Diastolic Provider Name and Address Organization Details Last Updated DateTime 10/28/2022 162.56 cm 28.7 kg/m2 94217.93 g 126/74 mm[Hg] [employer] 10/28/2022 14:57:04 Date Recorded Body height Body mass index (BMI) Body weight Systolic And Diastolic Provider Name and Address Organization Details Last Updated DateTime 12/09/2022 162.56 cm 29.4 kg/m2 08399.3 g 120/72 mm[Hg] [employer] 12/09/2022 16:59:23 Date Recorded Body weight Heart rate Oxygen saturation Oxygen saturation in Arterial blood by Pulse oximetry Systolic And Diastolic Provider Name and Address Organization Details Last Updated DateTime 5 86966.5 5 g 70 /min 100 % 100 % 122/84 mm[Hg] Yaima Baireskenzie Nippo 11:32:11 Date Recorded Body mass index (BMI) Body height Provider Name and Address Organization Details Last Updated DateTime 06/25/2025 29.1 kg/m2 162.56 cm Lesli [facility] [facility] 06/25/2025 11:38:40 Date Recorded Body weight Body mass index (BMI) Body height Systolic And Diastolic Provider Name and Address Organization Details Last Updated DateTime 08/30/2022 90925.74 g 28.3 kg/m2 162.56 cm 114/72 mm[Hg] SUSAN [employer] 08/30/2022 09:34:19 Date Recorded Body height Body mass index (BMI) Body weight Systolic And Diastolic Provider Name and Address Organization Details Last Updated DateTime 09/16/2022 162.56 cm 29.4 kg/m2 51274.3 g 136/74 mm[Hg] SUSAN [employer] 09/16/2022 14:18:01 Social History Question Answer Notes LastModified by Organizat ion Details LastModified Time Tobacco Smoking Status Current Every Day Smoker SocialHisto ryQuestion: 'Tobacco/Al cohol/Suppl ements'; SocialHisto ryResponse: 'Current Everyday Smoker'; Not Available [facility] 06/22/2022 23:01:19 Do You Have An Advance Directive? No Information not available 08/30/2022 Is Your Home Air Conditioned? Yes Information not available 08/30/2022 Do You Wear A Helmet When Biking? No Information not available 08/30/2022 Are You Blind Or Do You Have Difficulty Seeing? No Information not available 08/30/2022 What Is Your Level Of Caffeine Consumption? Heavy Information not available 08/30/2022 Are You A Caregiver? No Information not available 08/30/2022 In The 14 Days Before Symptom Onset, Have You Had Close Contact With A Laboratory-confir med COVID-19 While That Case Was Ill? No Information not available 08/30/2022 In The 14 Days Before Symptom Onset, Have You Had Close Contact With A Person Who Is Under Investigation For COVID-19 While That Person Was Ill? No Information not available 08/30/2022 Have You Been To An Area Known To Be High Risk For COVID-19? No Information not available 08/30/2022 Are You Deaf Or Do You Have Serious Difficulty Hearing? No Information not available 08/30/2022 What Type Of Diet Are You Following? REGULAR Information not available 08/30/2022 What Is The Highest Grade Or Level Of School You Have Completed Or The Highest Degree You Have Received? [id number] Information not available 08/30/2022 Who Is Your Employer? Self Information not available 08/30/2022 Have There Been Any Changes To Your Family Or Social Situation? No Information no t available 08/30/2022 Are There Any Guns Present In Your Home? Yes Information not available 08/30/2022 Which Of Your Hands Is Dominant? Right Information not available 08/30/2022 Do You Have A Medical Power Of Rehab Trainer? No Information not available 08/30/2022 What Was The Date Of Your Most Recent Tobacco Screening? 06/25/2025 [email or web address] Information not available 06/21/2025 What Is Your Current Pack Years? 20-29packyea rs Information not available 08/30/2022 Do You Have Any Pets? Yes Information not available 08/30/2022 What Is Your Relationship Status? Information not available 08/30/2022 Do You Use Your Seat Belt Or Car Seat Routinely? Yes Information not available 08/30/2022 Are You Sexually Active? Yes Information not available 08/30/2022 Do You Have Smoke And Carbon Monoxide Detectors In Your Home? Yes Information not available 08/30/2022 At What Age Did You Start Smoking Tobacco? 15 Information not available 08/30/2022 Are You Passively Exposed To Smoke? Yes Information no t available 08/30/2022 Are There Any Smokers In Your House? No Information not available 08/30/2022 How Much Tobacco Do You Smoke? 1 PPD Information not available 08/30/2022 Do You Participate In Social Media? Yes Information not available 08/30/2022 Do You Use Sunscreen Routinely? No Information not available 08/30/2022 Has Tobacco Cessation Counseling Been Provided? Yes Information not available 06/21/2025 On What Date Was Tobacco Cessation Counseling Provided? 06/25/2025 [email or web address] Information not available 06/21/2025 How Many Years Have You Smoked Tobacco? 22 Information not available 08/30/2022 Have You Recently Traveled Abroad? No Information not available 08/30/2022 Do You Have Difficulty Walking Or Climbing Stairs? No Information not available 08/30/2022 Are You Currently In School? No Information not available 08/30/2022 Do You Have Any Dietary Restrictions? No Information not available 08/30/2022 Sex: Female Functional Status Question Answer Note LastModified by THE MELT ion Details LastModified Time Do you use any illicit or recreational drugs? No Information not available 08/30/2022 Do you or have you ever used any other forms of tobacco or nicotine? No Information not available 08/30/2022 What is your level of alcohol consumption? None Information not available 08/30/2022 Are you currently employed? Yes Information not available 08/30/2022 Do you have transportation difficulties? No Information not available 08/30/2022 Are you able to walk independently without assistance or assistive devices? YESWOREST Information not available 08/30/2022 Do you have difficulty doing errands alone? No Information not available 08/30/2022 Are you able to care for yourself independently? Yes Information not available 08/30/2022 Do you have difficulty dressing, bathing, grooming, or toileting? No Information not available 08/30/2022 Mental Status Question Answer Note LastModified by Organizat ion Details LastModified Time Do you feel stressed (tense, restless, nervous, or anxious, or unable to sleep at night)? [id number] Information not available 08/30/2022 Do you have difficulty concentrating, remembering or making decisions? No Information no t available 08/30/2022 Family History Relationship Description Onset Age of this Age Resolved Age Notes LastModified by Organization Details LastModified Time Unspecified Relation Family history of hyperlipidem ia Relati ve: ''; [email or web address] Not available 06/22/2022 22:56:31 Unspecified Relation Family history of Hypertension Relati ve: ''; [email or web address] Not available 06/22/2022 22:56:31 Unspecified Relation Family history of breast cancer Relati ve: ''; [email or web address] Not available 06/22/2022 22:56:31 Unspecified Relation Family history of ischemic heart disease Relati ve: ''; [email or web address] Not available 06/22/2022 22:56:31 Unspecified Relation Family history of diabetes mellitus type 2 Relati ve: ''; [email or web address] Not available 06/22/2022 22:56:31 Notes:*Procedure Description : Documented family medical history in father*Relative: Father *Procedure Description: Documented family medical history in brother*Relative: Brother *Procedure Description: Family history of cerebrovascular accident*Relative: Unspecified Relation *Problem: Relative: ''; Medical History No medical history recorded. Gynecological History Statement/Question Response Abnormal Pap N Flow Heavy Frequency of Cycle (Q days) 30 Sexually Active? Y On BCP's at Conception? N Menses Monthly Y Date of Last Pap Smear 03/17/2019 Duration of Flow (days) 5 Most Recent Mammogram 10/17/2021 Current Control Method Tubal Ligat ion LMP Approximate Obstetrics History GPAL:G 3 P 2 0 1 3 Type Value Multiple Births 1 Full Term 2 Spontaneous 1 Living 3 Total 3 Immunizations Vaccine Type Date Status Note Provider Nam e and Address Organization Details Recorded Time Tdap 05/14/2010 completed [place] [facility] [employer] 08/30/2022 09:34:26 Past Encounters Encounter ID Performer Location Encounter Start Date Encounter Closed Date Diagnosis/Indication Diagnosis SNOMED-CT Code Diagnosis ICD10 Code Diagnosis IMO Codes Diagnosis Note [id number] Hal Wang III, MD [facility] [address] [place] [id number] 08/30/2022 09:18:27 08/30/2022 10:09:22 Gynecological examination abnormal 1432843355 57930 Z01.411 Had increased d/c on exam, so EMB not done. See if there is anything we need to treat and reschedule for EMB, as she wants to do NOVASURE. Discussed satisfacti on rate and procedure. [id number] Hal Wang III, MD [facility] [address] [place], [place] [address] 09/16/2022 14:07:29 09/16/2022 15:18:01 Menorrhagia 144508350 N92.0 Sexually t ransmitted infectious disease 9646881 A64 [id number] Hal Wang III, MD [facility] [address] [place], [place] [address] 10/28/2022 14:47:50 10/28/2022 16:14:03 Menorrhagia 841920849 N92.0 Sexually t ransmitted infectious disease 0179958 A64 Insertion of intrauterine contraceptive device 72012774 Z30.430 [id number] Hal Wang III, MD [facility] [place] [address], [place] [address] 12/09/2022 16:30:00 12/09/2022 17:06:48 Insertion of intrauterine contraceptive device 91380828 Z30.430 Menorrhagia 829912022 N9 2.0 Surveillan ce of intrauterine device contraception done 9703531976 95599 Z30.975 [id number] [facility] [address] [place], [place] [address] 06/25/2025 11:21:11 06/25/2025 11:54:44 Gynecologic examination 07448751 Z01.419 Removal of intrauterine contraceptive device 9024142210 Z30.432 973978 Health Concerns Section Related Observation LastModified by Organization Detai ls LastModified Time None Recorded Concern Status LastModified by Organization Details LastModified Time None Recorded Advance Directives Directive N: Payers Insurance Date Sequence Insurance Name Policy Number Policy Love Covered Member ID Love Member ID Guarantor Name 12/04/2022 1 UNSPECIFIED REMIT PAYOR Yee Harrington 06/25/2025 1 [facility] (HMO) Yee Harrington [id number] Yee Harrington 06/25/2025 1 [facility] (MEDICAID HMO) Yee Harrington [id number] Yee Harrington Notes Date Note Type Note Provider Name and Address Organization Details Recorded Time 08/30/2022 text/html Annual GYNReport ed by Patient . C/sx2. BTL. Labs wnl, including hormones, insulin, tsh, sydni, prolactin. TVUS today wnl, with ES 7mm. Was going to see [facility] for anxiety. H/o breast biopsy. Need results. Presents for annual exam today. She just left her because he was not faithful.Menses are very heavy and last 7 days. On heavy days she will bleed through pads and tampons. She has to sleep on a towel at night to keep from bleeding through on her sheets. We discussed endometrial abn., hyperplasia, even cancer. She did have breast bx done and is awaiting results. Pt states they were normal. Hal Wang III, MD [address] [place] [address], [phone], [employer]. 08/30/2022 10:07:03 09/16/2022 text/html . C/sx2. BTL. Labs wnl, including hormones, insulin, tsh, sydni, prolactin. TVUS 08/2022 wnl, with ES 7mm. Was going to see [facility] for anxiety. H/o breast biopsy. Need results. She just left her because he was not faithful.Menses are very heavy and last 7 days. On heavy days she will bleed through pads and tampons. She has to sleep on a towel at night to keep from bleeding through on her sheets. We discussed endometrial abn., hyperplasia, even cancer. She did have breast bx done and is awaiting results. Pt states they were normal.We were going to do an EMB last visit, but she had abn d/c. Pap from then wnl, except +trich. Negative Gc/CHl. Discussed results/STI's with her today. Needs to be treated for trich before anything else can be done. Hal Wang III, MD [address] [place] [address], [phone], [employer]. 09/16/2022 14:36:48 10/28/2022 text/html . C/sx2. BTL. With menorrhagia. See previous note for details. Nl labs and TVUS. Took treatment for Trich She has decided she would like to try a Mirena to control her menses. Placement and SE discussed. She would like to proceed today. She is just finishing a menses now. Hal Wang III, MD [address] [place], [address], [employer]. 10/28/2022 16:12:43 12/09/2022 text/html . C/sx2. BTL. With menorrhagia. Had Mirena placed 10-28-22. She loves it. Had a very lite menses. Still with some irreg. spotting. Nl pap 08/2022. + Trich, treated along with partner and SAMANTHA was negative, prior to placing IUD. TVUS today WNL and shows IUD in good position. Hal Wang III, MD [address] [place], [address], [employer]. 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 06/25/2025 11:50:27 OBGyn Episode Ob Episode Information Episode Created Date Number of Fetuses Patient Bloodtype Patient rh Status Prepregnancy Weight lbs Domestic Partner Domestic Partner Phone Father Name Pipeline Superintendent Status 08/30/20 22 2 CLOSED Fetus Data First Name Last Name Admitted to NICU Weight (g) Sex Living Outcome Pediatric Complications Fetus ID Race Codes Race Delivery Type 2466.17 9704 F Full Term 1865 Caesarian Delivery 2721.55 2 M Full Term 1866 Caesarian Delivery Alejandro Calculation Initial Alejandro Date Initial Exam Date Initial Exam Provider Initial Ultrasound Date Last Menstrual Period Date Ultra Sound Weeks Gestation 0 Eighteen To Twenty Week Alejandro Update Ultra Sound Date Fundal Height At Umbil Quickening Date Ultra Sound Latest Weeks Gestation Final Alejandro Confirmed By Final Alejandro Confirmed Date Final Alejandro Date Ultra Sound Latest Days Gestation 0 0 Menstrual History Last Menstrual Date Menses Monthly On Bcp Conception Prior Menses Frequency Hcg Plus Date Menarche Onset Age Delivery Information Delivery Date Delivery Type Labor Anesthesia Weeks Gestation Incision Type Labor Labor Length Hrs Delivered By Post Complications Tubal Sterilization Discharge Date Comments 5 Regional-Sp inal 38 false 0 Paints[place] [facility] le Discharge Information Feeding Method Contraceptive Method Maternal HG B and HCT Levels Ob Episode Information Episode Created Date Number of Fetuses Patient Bloodtype Patient rh Status Prepregnancy Weight lbs Domestic Partner Domestic Partner Phone Father Name Pipeline Superintendent Status 08/30/20 22 1 CLOSED Fetus Data First Name Last Name Admitted to NICU Weight (g) Sex Living Outcome Pediatric Complications Fetus ID Race Codes Race Delivery Type 2494.75 6 F Full Term 1867 Caesarian Delivery Alejandro Calculation Initial Alejandro Date Initial Exam Date Initial Exam Provider Initial Ultrasound Date Last Menstrual Period Date Ultra Sound Weeks Gestation 0 Eighteen To Twenty Week Alejandro Update Ultra Sound Date Fundal Height At Umbil Quickening Date Ultra Sound Latest Weeks Gestation Final Alejandro Confirmed By Final Alejandro Confirmed Date Final Alejandro Date Ultra Sound Latest Days Gestation 0 0 Menstrual History Last Menstrual Date Menses Monthly On Bcp Conception Prior Menses Frequency Hcg Plus Date Menarche Onset Age Delivery Information Delivery Date Delivery Type Labor Anesthesia Weeks Gestation Incision Type Labor Labor Length Hrs Delivered By Post Complications Tubal Sterilization Discharge Date Comments 2 Regional-Sp inal 40 false 0 [facility] Discharge Information Feeding Method Contraceptive Method Maternal HG B and HCT Levels
--- OUTSIDE RECORDS SUMMARY | 2025-08-02 10:51 | XMS_ITS | Continuity of Care Document ---
Author Organization [facility] [employer], [facility] Address [address] [place] [address] Assessment No assessment recorded. Plan of Treatment Reminders Order Date Submit Date Provider Last Modified By Organization Details Last Modified Time Details Appointments None recorded. Lab pap, IG + reflex HPV 2024 025 [place] ([facility], [address] [place] [address], [place], [address], 5 11:08:12 Referral None recorded. Procedures removal, intrauterin e device (PROC) 2024 025 [email or web address] Not available 08:01:07 Surgeries None recorded. Imaging MAMMO, screening, digital, bilateral 2024 025 [email or web address] [facility] (Central Scheduling), [address], [place], [address], 5 07:24:41 Medication Orders None recorded. Patient TargetsNo targets recorded. Patient Instructions Encounter Date Encounter Id Patient Instructions Last Modified By Organization Details Last Modified Time 06/25/2025 [id number] pap q 5 yrs mammography every 1-2 yrs PCP yearly for a wellness exam pelvic prn [email or web address] Not available 06/25/2025 11:50:23 Reason for Referral None Reported. Results Created Date Observation Date Name Description Value Unit Range Abnormal Flag Note LastModifiedBy Organization Detail LastModifiedTime 06/25/2006/26/2025 IGP,A PTIMA HPV,A GE GDLN age gdln acog testing 30-65 Not Available [facility] ([facility]) [address] [facility], [place], [address], 06/27/2025 11:08:12 06/25/20 25 06/26/2025 IGP,A PTIMA HPV,A GE GDLN HPV aptima Negati ve negati ve This nucle ic acid ampli ficat ion test detec ts fourt een high- risk HPV types (16,1 8,31, 33,35 ,39,4 5,51, 52,56 ,58,5 9,66, 68) witho ut diffe renti ation . Not Available [facility] ([facility]) [address] [facility], [place], [address], 06/27/2025 11:08:12 06/25/20 25 06/27/2025 IGP,A PTIMA HPV,A GE GDLN diagnosis: Commen t NEGAT SALINA FOR INTRA EPITH ELIAL LOUISE Alexander OR CARLA KRAMER . Not Available [facility] ([facility]) [address] [facility], [place], [address], 06/27/2025 11:08:12 06/25/20 25 06/27/2025 IGP,A PTIMA HPV,A GE GDLN specimen adequacy: Commen t Satis facto ry for evalu ation . Endoc ervic al and/o r squam ous metap lasti c cells (endo cervi angelica compo nent) are prese nt. Not Available [facility] ([facility]) [address] [facility], [place], [address], 06/27/2025 11:08:12 06/25/20 25 06/27/2025 IGP,A PTIMA HPV,A GE GDLN clinician provided ICD10: Commen t Z01.4 19 Not Available [facility] ([facility]) [address] [facility], [place], [address], 06/27/2025 11:08:12 06/25/20 25 06/27/2025 IGP,A PTIMA HPV,A GE GDLN performed by: Delfin Mullins, Cytol ogist (ASCP ) Not Available [facility] ([facility]) [address] [place], [address], 06/27/2025 11:08:12 06/25/20 25 06/27/2025 IGP,A PTIMA HPV,A GE GDLN . . Not Available [facility] ([facility]) [address] [place], [address], 06/27/2025 11:08:12 06/25/2006/27/2025 IGP,A PTIMA HPV,A GE GDLN note: Delfin [...] ts do occur . Not Available [facility] ([facility]) [address] [place], [address], 06/27/2025 11:08:12 06/25/2006/27/2025 IGP,A PTIMA HPV,A GE GDLN test methodology: Delfin chery This liqui d based ThinP rep(R ) pap test was scree suad with the use of an image guide patricia systbahman m. Not Available [facility] ([facility]) [address] [place], [address], 06/27/2025 11:08:12 06/25/2006/27/2025 IGP,A PTIMA HPV,A GE GDLN HPV genotype reflex Delfin chery Crite raheel not met, HPV Genot ype not perfo rmed. Not Available [facility] ([facility]) [address] [place], [address], 06/27/2025 11:08:12 Result Notes None recorded. Problems Name Problem SNOMED Code Status Onset Date Resolution Date Notes Provider Name and Address Organization Details Recorded Time Menorrhagia 368433824 Active 2021 Hal Wang III, MD [address] [place] [address], [phone], [employer] [facility] 2 14:33:41 Surveillanc e of intrauterin e device contracepti on done 1250507668725 04 Active 2022 Hal Wang III, MD [address] [place] [address], [phone], [facility] [facility] 3 17:19:02 Problem Notes None recorded. Procedures Surgical History Date Name Laterality Status Provider Name and Address Organization Details Recorded Time 06/25/20 25 IUD Removal completed Dora Alba CNM [address] [place] [address], [phone], [facility] 06/24/2025 18:39:29 10/28/19 23 IUD Insertion completed Hal Wang III, MD [address] [place] [address], [phone], [facility] 10/28/2022 16:11:26 10/17/19 22 Most Recent Mammogram completed Yaima Forrest [facility] 06/25/2025 11:34:39 03/17/20 19 Date of Last Pap Smear completed [employer] 08/30/2022 09:35:14 Caesarean Section completed [employer] 08/30/2022 09:41:38 Caesarean Section completed [employer] 08/30/2022 09:41:45 ligation of fallopian tube completed [employer] 08/30/2022 09:41:53 tonsillectomy completed [employer] 08/30/2022 09:42:00 Imaging Results None recorded. Procedure [...] No t Available Vitals Date Recorded Body weight Heart rate Oxygen saturation Oxygen saturation in Arterial blood by Pulse oximetry Systolic And Diastolic Provider Name and Address Organization Details Last Updated DateTime 5 09607.5 5 g 70 /min 100 % 100 % 122/84 mm[Hg] Crystal Adriane [facility] 5 11:32:11 Date Recorded Body mass index (BMI) Body height Provider Name and Address Organization Details Last Updated DateTime 06/25/2025 29.1 kg/m2 162.56 cm Lesli [place] [facility] 06/25/2025 11:38:40 Social History Question Answer Notes LastModified by Organizat ion Details LastModified Time Tobacco Smoking Status Current Every Day Smoker SocialHisto ryQuestion: 'Tobacco/Al cohol/Suppl ements'; SocialHisto ryResponse: 'Current Everyday Smoker'; Not Available [facility] 06/22/2022 23:01:19 Do You Have An Advance [...] Or The Highest Degree You Have Received? [id number] Information not available 08/30/2022 Who Is Your Employer? Self Information not available 08/30/2022 Have There Been Any Changes To Your Family Or Social Situation? No Information no t available 08/30/2022 Are There Any Guns Present In Your Home? Yes Information not available 08/30/2022 Which Of Your Hands Is Dominant? Right Information not available 08/30/2022 Do You Have A Medical Power Of Steam And Gas Turbines Assembler? No Information not available 08/30/2022 What Was The Date Of Your Most Recent Tobacco Screening? 06/25/2025 [email or web address] Information not available 06/21/2025 What Is Your [...] Date Was Tobacco Cessation Counseling Provided? 06/25/2025 Information not available 06/21/2025 How Many Years [...] Functional Status Question Answer Note LastModified by [employer] ion Details LastModified Time Do you use [...] anxious, or unable to sleep at night)? [id number] Information not available 08/30/2022 Do you have [...] Organization Details Recorded Time Tdap 05/14/2010 completed SUSAN wilkins [facility] [employer] [facility]. 08/30/2022 09:34:26 Past Encounters Encounter ID Performer Location Encounter Start Date Encounter Closed Date Diagnosis/Indication Diagnosis SNOMED-CT Code Diagnosis ICD10 Code Diagnosis IMO Codes Diagnosis Note [id number] Dora Alba CNM [facility] [address] [place] [address] 06/25/2025 11:21:11 06/25/2025 11:54:44 Gynecologic examination 35083603 Z01.419 Removal of intrauterine contraceptive device 2792009610 Z30.432 [id number] Health Concerns Section Related Observation LastModified by Organization Detai ls LastModified Time None Recorded Concern Status LastModified by Organization Details LastModified Time None Recorded Payers Encounter Date Sequence Insurance Name Policy Number Policy Love Covered Member ID Love Member ID Guarantor Name 06/25/2025 1 [facility] [place] (MEDICAID HMO) Yee Harrington [id number] Yee Harrington Notes Date Note Type Note Provider Name and Address Organization Details Recorded Time 06/25/2025 text/html Annual GYNReport ed by Patient 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 06/25/2025 11:50:27 OBGyn Episode No OBEpisode recorded.
--- OUTSIDE RECORDS SUMMARY | 2025-08-02 10:51 | XMS_ITS | Referral Summary ---
Author Organization [employer] ([place], [place], [place], [place]) Address [address] [place] [address] Care Team Providers Care Biostatistics Professor Name Role Phone Corrina Helton MD Primary Care Provider [phone] Encounters Date Type Department Care Team Description 07/26/[address] [facility] Central Scheduling [address] [place] [address] [facility], Provider Not In The System, Screening mammogram for breast cancer (Primary Dx) 07/15/2025 Outside Orders [facility] Scheduling [address] [place] [address] Dora Burnham APRN from Last 3 Months Allergies No known [...] 04/10/2025 1:24 PM EDT Plan of Treatment Upcoming Encounters Date Type Department Care Team (Late st Contact Info) Description 10/25/2025 1:30 PM EST Appointment [facility] Breast Imaging [address] [place] [address] [facility], Provider Not In The System, [place] [address] Insurance [facility] Care Teams Biostatistics Professor Relationship Specialty Start Date End Date Corrina Helton MD [address] [place] [address] PCP - General Internal Medicine 04/10/25
--- OUTSIDE RECORDS SUMMARY | 2025-08-02 10:51 | XMS_ITS | Clinical Summary ---
Author Organization [employer] ([place], [place], [place], [place]) Address [address] [place] [address] Care Team Providers Care [employer] Name Role Phone Corrina Helton MD Primary Care Provider [phone] Allergies No known active allergies Medications propranoloL (INDERAL LA) 60 MG 24 hr capsule Take 1 capsule (60 mg total) by mouth daily. 08/13/2024 Active Encounters Date Type Department Care Team Description 07/26/2025 Outside Orders [facility] Central Scheduling [address] [place] [address] [facility], Provider Not In The System, Screening mammogram for breast cancer (Primary Dx) 07/15/2025 Outside Orders [facility] Central Scheduling [address] [place] [address] Dora Burnham APRN from Last 3 Months Social History Tobacco [...] Info) Description 10/25/2025 1:30 PM EST Appointment [facility] Breast Imaging [address] [place] [address] [facility], Provider Not In The System, [place] [address] Health Maintenance Due Date Last Done Comments Depression Screening (12+) 1995 Tobacco Cessation Counseling and Screening (12+) 04/06 HIV Screening 1998 Hepatitis C Screening 2001 Pneumococcal Vaccine: 0-49 Years (1 of 2 - PCV) 2001 Lipid Panel 2003 Pap Smear 2004 DTAP/TDAP/TD VACCINES (2 - Td or Tdap) 05/14/2020 Breast Cancer Screening 2023 COVID-19 VACCINE ( - season) 2025 Influenza Vaccine (#1) 2025 Insurance [facility] Care Teams [employer] Relationship Specialty Start Date End Date Corrina Helton MD [address] [place] [address] PCP - General Internal Medicine 04/10/25
--- OUTSIDE RECORDS SUMMARY | 2025-08-02 10:51 | XMS_ITS | Encounter Summary ---
Author Organization [employer] ([place], [place], [place], [place]) Address [address] [place] [address] Care Team Providers Care Lease Picker Name Role Phone Corrina Helton MD Primary Care Provider [phone] Encounter Details Date Type Department Care Team (Late Contact Info) Description 07/15/2025 Outside Orders [facility] Central Scheduling [address] [place] [address] Dora Burnham, CERTIFIED CAREGIVER [address] [facility] [address] [place] [address] Social History Tobacco Use Types Packs/Day Years [...] Info) Description 10/25/2025 1:30 PM EST Appointment [facility] Breast Imaging [address] [place] [address] [facility], Provider Not In The System, [place] [address] documented as of this encounter Visit Diagnoses Not on filedocumented in this encounter Care Teams Lease Picker Relationship Specialty Start Date End Date Corrina Helton MD [address] [place] [address] PCP - General Internal Medicine 04/10/25 documented as of this encounter
[2025-08-02 11:01] LABS: Hematocrit 43.2 % (37.0-47.0); Hemoglobin 14.3 g/dL (12.2-16.2); Immature Granulocytes % 0.2 %; Mean Corpuscular HGB Conc 33.1 g/dL (31.8-35.4); Mean Corpuscular Hemoglobin 29.3 pg (27.0-31.2); Mean Corpuscular Volume 88.5 fl (81-99); Nucleated Red Blood Cells % 0 %; Platelet Count 211 K/mm3 (142-424); Red Blood Count 4.88 M/mm3 (4.20-5.40); Red Cell Distribution Width-SD 44.5 fL; White Blood Count 8.1 K/mm3 (4.8-10.8)
[2025-08-02 12:03] LABS: Alanine Aminotransferase 20 U/L (12-78); Albumin Level 4.2 g/dl (3.5-5.0); Albumin/Globulin Ratio 1.4 (1.1-1.8); Alkaline Phosphatase 115 U/L (38-126); Anion Gap 14.7 mEq/L (5-15); Aspartate Amino Transferase 21 U/L (14-36); Bilirubin,Total 0.7 mg/dl (0.2-1.3); Blood Urea Nitrogen 11 mg/dl (7-17); Calcium 9.0 mg/dl (8.4-10.2); Carbon Dioxide 24 mmol/L (22.0-30.0); Chloride 104 mmol/L (98-107); Cholesterol 199 mg/dl (140-200); Creatinine,Serum 0.90 mg/dl (0.52-1.04); Estimated Glomerular Filt Rate 69 ml/min (>60); GFR (African American) 83 ML/MIN (>60); Globulin 2.9 g/dL (1.3-3.2); Glucose 114 mg/dl (74-100); HDL Cholesterol 39 mg/dl (40-60); Potassium 4.7 mmoL/L (3.5-5.1); Sodium 138 mmol/L (136-145); Total Protein,Serum 7.1 g/dl (6.3-8.2); Triglycerides 132 mg/dl (30-150)
[2025-08-02 12:13] LABS: C-Reactive Protein 10.5 mg/L (0-4)
[2025-08-02 12:30] LABS: Thyroid Stimulating Hormone 1.57 uIU/mL (0.465-4.68)
== END 2025-08-02 23:59 | disposition home or self-care (01) ==
LOC: LAB 10:46
PROVIDERS: PCP Family Medicine; Visit Provider Family Medicine
DX: E55.9 Vitamin D deficiency, unspecified (principal); E05.90 Thyrotoxicosis, unspecified without thyrotoxic crisis or storm; E21.3 Hyperparathyroidism, unspecified; E78.5 Hyperlipidemia, unspecified; I10 Essential (primary) hypertension; R79.82 Elevated C-reactive protein (CRP)
CPT/HCPCS: 36415; 80053; 80061; 82652; 84443; 85025; 86140

== ENCOUNTER 2025-08-05 12:23 | Outpatient (CLI) | payer MEDICAID, SELFPAY ==
--- OUTSIDE RECORDS SUMMARY | 2025-08-05 12:26 | XMS_ITS | Clinical Summary ---
Author Organization [employer] ([place], [place], [place], [place]) Address [address] [place] [address] Care Team Providers Care Psychiatry Physician Name Role Phone Corrina Helton MD Primary Care Provider [phone] Allergies No known active allergies Medications propranoloL (INDERAL LA) 60 MG 24 hr capsule Take 1 capsule (60 mg total) by mouth daily. 08/13/2024 Active Encounters Date Type Department Care Team Description 07/26/2025 Outside Orders [facility] Central Scheduling [address] [place] [address] [facility], Provider Not In The System, Screening mammogram for breast cancer (Primary Dx) 07/15/2025 Outside Orders [facility] Central Scheduling [address] [place] [address] Dora Burnham APRN from Last [...] Info) Description 10/25/2025 1:30 PM EST Appointment [facility] Breast Imaging [address] [place] [address] [facility], Provider Not In The System, [place] [address] Health Maintenance Due Date Last Done Comments [...] season) 2025 Influenza Vaccine (#1) 2025 Insurance [facility] Care Teams Psychiatry Physician Relationship Specialty Start Date End Date Corrina Helton MD [address] [place] [address] PCP - General Internal Medicine 04/10/25
--- OUTSIDE RECORDS SUMMARY | 2025-08-05 12:26 | XMS_ITS | Encounter Summary ---
Author Organization [employer] ([place], [place], [place], [place]) Address [address] [place] [address] Care Team Providers Care Licensed Staff Mft Name Role Phone Corrina Helton MD Primary Care Provider [phone] Reason for Referral * Mammography (Routine) - New Request Specialty Diagnoses / Procedures Referred By Harshad chery Referred To Contact Radiology Diagnoses Screening mammogram for breast cancer Procedures MM digital mammo screen with domenica bilateral [facility], Provider Not In The System, [place] [address] Referral ID Status Reason Start Date Expiration Date V isits Requested Visits Authorized [id number] New Request 07/26/2025 07/26/2026 1 1 Encounter Details Date Type Department Care Team (Late Contact Info) Description 07/26/2025 Outside Orders [facility] Central Scheduling [address] [place] [id number] [facility], Provider Not In The System, [place] [address] Screening mammogram for breast cancer (Primary Dx) [...] Info) Description 10/25/2025 1:30 PM EST Appointment [facility] [address] [place] [address] [facility], Provider Not In The System, [place] [address] Scheduled Orders Name Type Priority Associated Diagnoses Orde r Schedule MM digital mammo screen with domenica bilateral Imaging Routine Screening mammogram for breast cancer Expected: 07/26/2025, Expires: 08/26/2026 documented as of this encounter Visit Diagnoses Diagnosis Screening mammogram for breast cancer- Primary documented in this encounter Care Teams Licensed Staff Mft Relationship Specialty Start Date End Date Corrina Helton MD [facility] [place] [address] [place] [address] PCP - General Internal Medicine 04/10/25 documented as of this encounter
--- OUTSIDE RECORDS SUMMARY | 2025-08-05 12:26 | XMS_ITS | Referral Summary ---
Author Organization [employer] ([place], [place], [place], [place]) Address [address] [place] [address] Care Team Providers Care Metal Punch Press Operator Name Role Phone Corrina Helton MD Primary Care Provider [phone] Encounters Date Type Department Care Team Description 07/26/2025 Outside Orders [facility] Central Scheduling [address] [place] [address] [facility], Provider Not In The System, Screening mammogram for breast cancer (Primary Dx) 07/15/2025 Outside Orders [facility] Scheduling [address] [place] [address] Dora Burnham APRN from Last [...] Info) Description 10/25/2025 1:30 PM EST Appointment [facility] [address] [place] [address] [facility], Provider Not In The System, [place] [address] Insurance [facility] Care Teams Metal Punch Press Operator Relationship Specialty Start Date End Date Corrina Helton MD [address] [place] [address] PCP - General Internal Medicine 04/10/25
--- OUTSIDE RECORDS SUMMARY | 2025-08-05 12:26 | XMS_ITS | Encounter Summary ---
Author Organization [employer] ([place], [place], [place], [place]) Address [address] [place] [address] Care Team Providers Care Negotiator Name Role Phone Corrina Helton MD Primary Care Provider Encounter Details Date Type Department Care Team (Late Contact Info) Description 07/15/2025 Outside Orders [facility] Central Scheduling [address] [place] [address] Dora Burnham, [employer] [address] [facility] [address] [place] [address] Social History Tobacco Use Types [...] Info) Description 10/25/2025 1:30 PM EST Appointment [facility] [address] [place] [address] [facility], Provider Not In The System, [place] [address] documented as of this encounter Visit Diagnoses Not on filedocumented in this encounter Care Teams Negotiator Relationship Specialty Start Date End Date Corrina Helton MD [address] [place] [address] PCP - General Internal Medicine 04/10/25 documented as of this encounter
[2025-08-05 12:55] LABS: Hemoglobin A1C 5.1 % (4.0-6.0)
== END 2025-08-05 23:59 | disposition home or self-care (01) ==
LOC: LAB 12:24
PROVIDERS: PCP Family Medicine; Visit Provider Family Medicine
DX: R73.9 Hyperglycemia, unspecified (principal)
CPT/HCPCS: 36415; 83036

== ENCOUNTER 2025-08-09 15:08 | Outpatient (CLI) | payer MEDICAID, SELFPAY ==
--- OUTSIDE RECORDS SUMMARY | 2025-08-09 15:11 | XMS_ITS | Encounter Summary ---
Author Organization [employer] ([place], [place], [place], [place]) Address [address] [place] [address] Care Team Providers Care Insurance Instructor Name Role Phone Corrina Helton MD Primary Care Provider [phone] Reason for Referral * Mammography (Routine) - New Request Specialty Diagnoses / Procedures Referred By Harshad chery Referred To Contact Radiology Diagnoses Screening mammogram for breast cancer Procedures MM digital mammo screen with domenica bilateral [facility], Provider Not In The System, [place] [address] Referral ID Status Reason Start Date Expiration Date V isits Requested Visits Authorized [id number] New Request 07/26/2025 07/26/2026 1 1 Encounter Details Date Type Department Care Team (Late Contact Info) Description 07/26/2025 Outside Orders [facility] Central Scheduling [address] [place] [id number] [facility], Provider Not In The System, [place] [address] Screening mammogram for breast cancer (Primary Dx) [...] Info) Description 10/25/2025 1:30 PM EST Appointment [facility] [address] [place] [address] [facility], Provider Not In The System, [place] [address] Scheduled Orders Name Type Priority Associated Diagnoses Orde r Schedule MM digital mammo screen with domenica bilateral Imaging Routine Screening mammogram for breast cancer Expected: 07/26/2025, Expires: 08/26/2026 documented as of this encounter Visit Diagnoses Diagnosis Screening mammogram for breast cancer- Primary documented in this encounter Care Teams Insurance Instructor Relationship Specialty Start Date End Date Corrina Helton MD [facility] [place] [address] [place] [address] PCP - General Internal Medicine 04/10/25 documented as of this encounter
--- OUTSIDE RECORDS SUMMARY | 2025-08-09 15:11 | XMS_ITS | Data Portability ---
Author Organization [facility] Address [address] [place] [address] Assessment Encounter Date Assessment Date Assessment LastModified by Organization Details LastModified Time 10/28/2022 10/28/2022 Trich SAMANTHA. Mirena insertion. Pelvic rest for 24 hrs. F/u 6 wks for TVUS IUD check. [email or web address] Not available 10/28/2022 16:12:03 12/09/2022 12/09/2022 Nl IUD check. F/u prn or 1 year. Not available 12/09/2022 17:18:40 Plan of Treatment Reminders Order Date Submit Date Provider Last Modified By Organization Details Last Modified Time Details Appointments None recorded. Lab pap, IG + reflex HPV 2024 025 MADILL [facility], [address] [place] [address], [place], [address], 5 11:08:12 trichomonas vaginalis RNA 2022 023 [facility], [address], [place], [address], 3 19:41:32 test, urine 2022 023 [email or web address] 5 [facility], [address] [place] [address], [place], [address], 3 16:11:34 HIV 1+2 Ab + HIV1 p24 Ag, quantitativ e immunoassay , serum 2021 [employer] [facility], [address], [place], [address], 2 10:23:00 RPR (rapid plasma reagin), serum 2021 [employer] [facility], [address], [place], [address], 2 10:23:00 HBsAg (hepatitis B surface Ag), serum 2021 [employer] [facility], [address], [place], [address], 2 10:22:59 hepatitis C virus Ab, serum 2021 [employer] [facility], [address], [place], [address], 10:22:59 pap, LB + CT/NG + HR HPV 2021 [employer] [facility], [address], [place], [address], 12:06:44 Referral None recorded. Procedures removal, intrauterin e device (PROC) 2024 025 [email or web address] Not available 5 08:01:07 Surgeries None recorded. Imaging MAMMO, screening, digital, bilateral 2024 025 [email or web address] [facility] Sched[facility]), [address], [place], [address], 5 13:19:07 Medication Orders Flagyl 500 mg tablet 2021 022 [facility], [address], [place], [address], 14:39:43 Patient TargetsNo targets recorded. Patient Instructions Encounter Date Encounter Id Patient Instructions Last Modified By Organization Details Last Modified Time 06/25/2025 [id number] pap q 5 yrs mammography every 1-2 yrs PCP yearly for a wellness exam pelvic prn [email or web address] Not available 06/25/2025 11:50:23 Reason for Referral None Reported. Results Created Date Observation Date Name Description Value Unit Range Abnormal Flag Note LastModifiedBy Organization Detail LastModifiedTime 08/30/20 22 09/03/2022 THINP REP PAP AND HR HPV DNA, C. TRACH OMATI S AND N. GONOR RHOEA E clinical information: normal None given Not Available [facility] [place] [facility] [address], [place], [address], 09/03/2022 12:06:44 08/30/20 22 09/03/2022 THINP REP PAP AND HR HPV DNA, C. TRACH OMATI S AND N. GONOR RHOEA E LMP: normal NONE GIVEN Not Available [facility] [place] [address], [place], [address], 09/03/2022 12:06:44 08/30/20 22 09/03/2022 THINP REP PAP AND HR HPV DNA, C. TRACH OMATI S AND N. GONOR RHOEA E prev. Pap: normal NONE GIVEN Not Available [facility] [place] [facility] [address], [place], [address], 09/03/2022 12:06:44 08/30/20 22 09/03/2022 THINP REP PAP AND HR HPV DNA, C. TRACH OMATI S AND N. GONOR RHOEA E prev. BX: normal NONE GIVEN Not Available [facility] [place] [facility] [address], [place], [address], 09/03/2022 12:06:44 08/30/20 22 09/03/2022 THINP REP PAP AND HR HPV DNA, C. TRACH OMATI S AND N. GONOR RHOEA E source: normal Cervi x, Endoc ervix Not Available [facility] [place] [address] [facility], [place], [address], 09/03/2022 12:06:44 08/30/20 22 09/03/2022 THINP REP [...] [email or web address] on Not Available [facility] [place] [facility] [address] [facility], [place], [address], 09/03/2022 12:06:44 08/30/20 22 09/03/2022 THINP REP PAP AND HR HPV DNA, C. TRACH OMATI S AND N. GONOR RHOEA E interpretati on/result: normal Negat salina for intra epith elial lesio n or malig jordy . Not Available [facility] [place] [facility] [address] [facility], [place], [address], 09/03/2022 12:06:44 08/30/20 22 09/03/2022 THINP REP PAP AND HR HPV DNA, C. TRACH OMATI S AND N. GONOR RHOEA E infection: normal Trich omona s vagin eusbeia ident ified . Not Available [facility] [place] [facility] [address], [place], [address], 09/03/2022 12:06:44 08/30/20 22 09/03/2022 THINP REP PAP AND HR HPV DNA, C. TRACH OMATI S AND N. GONOR RHOEA E cytotechnolo gist: normal MSJ, CT( CP) CT Scree corie locat ion: [facility] [place] [place] [address] [place] [address] Not Available [facility] [place] [facility] [address], [place], [address], 09/03/2022 12:06:44 08/30/20 22 09/03/2022 THINP REP [...] matio n. Not Available [facility] [place] [facility] [address], [place], [address], 09/03/2022 12:06:44 08/30/20 22 09/03/2022 THINP REP [...] of the other types of HPV in [facility] has not been estab pito maldonado y: Real Time PCR Not Available [facility] [place] [facility] [address], [place], [address], 09/03/2022 12:06:44 08/30/20 22 09/03/2022 THINP REP PAP AND HR HPV DNA, C. TRACH OMATI S AND N. GONOR RHOEA E chlamydia trachomatis RNA, tma, urogenital NOT DETECT ED not detect ed normal Not Available [facility] [place] [facility] [address], [place], [address], 09/03/2022 12:06:44 08/30/20 22 09/03/2022 THINP REP PAP AND HR HPV DNA, C. TRACH OMATI S AND N. GONOR RHOEA E neisseria gonorrhoeae RNA, tma, urogenital NOT DETECT ED not detect ed normal Not Available [facility] [address] [place], [address], 09/03/2022 12:06:44 08/30/20 22 09/03/2022 THINP REP [...] refer to https ://ed ucati on.qu estdi TellmeGens. com/f aq/FA Q154 (This link is being provi ded for infor melanie deras/ educa nathan l purpo ses only. ) Not Available [facility] [place] [facility] [address] [facility], [place], [address], 09/03/2022 12:06:44 09/16/20 22 09/17/2022 HEPAT ITIS B SURFA CE ANTIG EN W/REF L CONFI RM hepatitis B surface antigen NON-RE ACTIVE non-re active normal Not Available [facility] [place] [facility] [address] [facility], [place], [address], 09/17/2022 13:14:12 09/16/20 22 09/17/2022 HEPAT ITIS C AB W/REF L TO HCV RNA, QN, PCR hepatitis C antibody NON-RE ACTIVE non-re active normal Not Available [facility] [place] [address] [place], [address], 09/17/2022 15:23:49 09/16/20 22 09/17/2022 HEPAT ITIS [...] a test for HCV RNA (test code 99878 ) is sugge sted. For addit ional infor matio n pleas e refer to http: //[facility] stdia gnost ics.c om/fa q/FAQ 22v1 (This link is being provi ded for infor matio nal/ educa nathan l purpo ses only. ) Not Available [facility] [place] [facility] [address] [facility], [place], [address], 09/17/2022 15:23:49 09/16/20 22 09/17/2022 HIV 1/2 [...] melanie n plemarshall e refer to http: //[facility] deras.que stdia gnost ics.c om/fa q/FAQ 106 (This link is being provi ded for infor matio nal/ educa nathan l purpo ses only. ) The perfo rmanc e of this assay has not been clini ti valid ated in patie nts less than 2 years old. Not Available [facility] [place] [address] [place], [address], 09/17/2022 15:12:03 09/16/20 22 09/17/2022 RPR (DX) W/REF L TITER AND CONFI RMATO RY TESTI NG RPR (DX) w/refl titer and confirmatory testing NON-RE ACTIVE non-re active normal Not Available [facility] [place] [address] [place], [address], 09/17/2022 10:23:00 10/28/19 23 10/29/2022 TRICH OMONA S VAGIN EUSBEIA RNA, QL TMA trichomonas vaginalis RNA, ql tma NOT DETECT ED not detect ed normal For addit ional jeremier aldo quevedo e refer to http: //[facility] deras.que stdia gnost ics.c om/ faq/T miranda bedolla tma (This link is being provi ded for infor matio nal/ educa nathan l purpo ses only. ) Not Available [facility] [place] [facility] [address] [place], [address], 10/29/2022 19:41:32 10/28/19 23 10/28/2022 pregn silvana test, urine HCG negati ve Not Available [facility] [address] [facility], [place], [address], 10/28/2022 15:40:27 06/25/20 25 06/26/2025 IGP,A PTIMA HPV,A GE GDLN age gdln acog testing 30-65 Not Available [facility]) [address] [facility] [address], [place], [address], 06/27/2025 11:08:12 06/25/20 25 06/26/2025 IGP,A PTIMA HPV,A GE GDLN HPV aptima Negati ve negati ve This nucle ic acid ampli ficat ion test detec ts fourt een high- risk HPV types (16,1 8,31, 33,35 ,39,4 5,51, 52,56 ,58,5 9,66, 68) witho ut diffe renti ation . Not Available [facility] ([facility]) [address] [facility] [address], [place], [address], 06/27/2025 11:08:12 06/25/20 25 06/27/2025 IGP,A PTIMA HPV,A GE GDLN diagnosis: Commen t NEGAT SALINA FOR INTRA EPITH ELIAL LESTYLER N OR CARLA KRAMER . Not Available [facility] ([facility]) [address] [facility] [address], [place], [address], 06/27/2025 11:08:12 06/25/2006/27/2025 IGP,A PTIMA HPV,A GE GDLN specimen adequacy: Commen t Satis facto ry for evalu ation . Endoc ervic al and/o r squam ous metap lasti c cells (endo cervi angelica compo nent) are prese nt. Not Available [facility] ([facility]) [address] [facility] [address], [place], [address], 06/27/2025 11:08:12 06/25/20 25 06/27/2025 IGP,A PTIMA HPV,A GE GDLN clinician provided ICD10: Delfin t Z01.4 19 Not Available [facility] ([facility]) [address] [facility] [address], [place], [address], 06/27/2025 11:08:12 06/25/20 25 06/27/2025 IGP,A PTIMA HPV,A GE GDLN performed by: Delfin Mullins, Cytol ogist (ASCP ) Not Available [facility] ([facility]) [address] [place], [address], 06/27/2025 11:08:12 06/25/20 25 06/27/2025 IGP,A PTIMA HPV,A GE GDLN . . Not Available [facility] ([facility]) [address] [place], [address], 06/27/2025 11:08:12 06/25/20 25 06/27/2025 IGP,A PTIMA [...] ts do occur . Not Available [facility] ([facility]) [address] [place], [address], 06/27/2025 11:08:12 06/25/20 25 06/27/2025 IGP,A PTIMA HPV,A GE GDLN test methodology: Delfin chery This liqui d based ThinP rep(R ) pap test was scree suad with the use of an image guide patricia systbahman m. Not Available [facility] ([facility]) [address] [place], [address], 06/27/2025 11:08:12 06/25/20 25 06/27/2025 IGP,A PTIMA HPV,A GE GDLN HPV genotype reflex Delfin chery Crite raheel not met, HPV Genot ype not perfo rmed. Not Available [facility] ([facility]) [address] [place], [address], 06/27/2025 11:08:12 10/28/19 23 10/28/2022 US, pelvi s No observ ation record ed. [facility] [address], [place], [address], 11/01/2022 13:29:00 12/09/19 23 12/09/2022 US, trans vagin al No observ ation record ed. [email or web address] [facility] [address], [place], [address], 12/09/2022 17:03:25 Result Notes None recorded. Problems Name Problem SNOMED Code Status Onset Date Resolution Date Notes Provider Name and Address Organization Details Recorded Time Menorrhagia 741571342 Active 2021 Hal Wang III, MD [address] [place] [address], [phone], [employer] 2 14:33:41 Surveillanc e of intrauterin e device contracepti on done 0115634819729 04 Active 2022 Hal Wang III, MD [address] [place] [address], [address], [employer] 3 17:19:02 Problem Notes None recorded. Procedures Surgical History Date Name Laterality Status Provider Name and Address Organization Details Recorded Time 06/25/20 25 IUD Removal completed Dora Alba CNM [address] [place] [address], [phone], [employer] 06/24/2025 18:39:29 10/28/19 23 IUD Insertion completed Hal Wang III, MD [address] [place] [address], [address], [employer] 10/28/2022 16:11:26 10/17/19 22 Most Recent Mammogram completed Yaima Forrest [employer] 06/25/2025 11:34:39 03/17/20 19 Date of Last Pap Smear completed SUSAN UGALDE [place] - [employer] 08/30/2022 09:35:14 Caesarean Section completed [employer] 08/30/2022 09:41:38 Caesarean Section completed [employer]. 08/30/2022 09:41:45 ligation of fallopian tube completed [employer] 08/30/2022 09:41:53 tonsillectomy completed [employer] 08/30/2022 09:42:00 Imaging Results None recorded. Procedure [...] Updated DateTime 10/28/2022 162.56 cm 28.7 kg/m2 83857.93 g 126/74 mm[Hg] [employer] 10/28/2022 14:57:04 Date Recorded Body height Body mass index (BMI) Body weight Systolic And Diastolic Provider Name and Address Organization Details Last Updated DateTime 12/09/2022 162.56 cm 29.4 kg/m2 98374.3 g 120/72 mm[Hg] [employer] 12/09/2022 16:59:23 Date Recorded Body weight Heart rate Oxygen saturation Oxygen saturation in Arterial blood by Pulse oximetry Systolic And Diastolic Provider Name and Address Organization Details Last Updated DateTime 5 78498.5 5 g 70 /min 100 % 100 % 122/84 mm[Hg] Yaima Baireskenzie [employer] 11:32:11 Date Recorded Body mass index (BMI) Body height Provider Name and Address Organization Details Last Updated DateTime 06/25/2025 29.1 kg/m2 162.56 cm Lesli Paris [employer] 06/25/2025 11:38:40 Date Recorded Body weight Body mass index (BMI) Body height Systolic And Diastolic Provider Name and Address Organization Details Last Updated DateTime 08/30/2022 30578.74 g 28.3 kg/m2 162.56 cm 114/72 mm[Hg] SUSAN [employer] 08/30/2022 09:34:19 Date Recorded Body height Body mass index (BMI) Body weight Systolic And Diastolic Provider Name and Address Organization Details Last Updated DateTime 09/16/2022 162.56 cm 29.4 kg/m2 56954.3 g 136/74 mm[Hg] SUSAN [employer] 09/16/2022 14:18:01 Social History Question Answer Notes LastModified by Organizat ion Details LastModified Time Tobacco Smoking Status Current Every Day Smoker SocialHisto ryQuestion: 'Tobacco/Al cohol/Suppl ements'; SocialHisto ryResponse: 'Current Everyday Smoker'; Not Available [facility] 06/22/2022 23:01:19 Do You Have An [...] Or The Highest Degree You Have Received? [id number] Information not available 08/30/2022 Who Is Your Employer? Self Information not available 08/30/2022 Have There Been Any Changes To Your Family Or Social Situation? No Information no t available 08/30/2022 Are There Any Guns Present In Your Home? Yes Information not available 08/30/2022 Which Of Your Hands Is Dominant? Right Information not available 08/30/2022 Do You Have A Medical Power Of Endoscopy Technican? No Information not available 08/30/2022 What Was The Date Of Your Most Recent Tobacco Screening? 06/25/2025 Information not available 06/21/2025 What Is Your [...] Has Tobacco Cessation Counseling Been Provided? Yes [email or web address] Information not available 06/21/2025 On What Date Was Tobacco Cessation Counseling Provided? 06/25/2025 [email or web address] Information not available 06/21/2025 How Many Years [...] Functional Status Question Answer Note LastModified by [place] ion Details LastModified Time Do you use [...] anxious, or unable to sleep at night)? [id number] Information not available 08/30/2022 Do you have [...] Time Tdap 05/14/2010 completed [place] [facility] 08/30/2022 09:34:26 Past Encounters Encounter ID Performer Location Encounter Start Date Encounter Closed Date Diagnosis/Indication Diagnosis SNOMED-CT Code Diagnosis ICD10 Code Diagnosis IMO Codes Diagnosis Note [id number] Hal [facility] III, MD [facility] [address] [place] [id number] 08/30/2022 09:18:27 08/30/2022 10:09:22 Gynecological examination abnormal 1620479792 07198 Z01.411 Had increased d/c on exam, so EMB not done. See if there is anything we need to treat and reschedule for EMB, as she wants to do NOVASURE. Discussed satisfacti on rate and procedure. [id number] Hal Wang III, MD [facility] r [address] [place], [place] [address] 09/16/2022 14:07:29 09/16/2022 15:18:01 Menorrhagia 113200574 N92.0 Sexually t ransmitted infectious disease 3003227 A64 [id number] Hal Wang III, MD [facility] [address], [place] [id number] 10/28/2022 14:47:50 10/28/2022 16:14:03 Menorrhagia 392290594 N92.0 Sexually t ransmitted infectious disease 9357381 A64 Insertion of intrauterine contraceptive device 24798320 Z30.430 [id number] Hal Wang III, MD [facility] [address], [place] [address] 12/09/2022 16:30:00 12/09/2022 17:06:48 Insertion of intrauterine contraceptive device 94907444 Z30.430 Menorrhagia 537386463 N9 2.0 Surveillan ce of intrauterine device contraception done 8278690595 07059 Z30.488 [id number] [facility] [address], [place] [id number] 06/25/2025 11:21:11 06/25/2025 11:54:44 Gynecologic examination 56571766 Z01.419 Removal of intrauterine contraceptive device 9947212762 Z30.432 [id number] Health Concerns Section Related Observation LastModified by Organization Detai ls LastModified Time None Recorded Concern Status LastModified by Organization Details LastModified Time None Recorded Advance Directives Directive N: Payers Insurance Date Sequence Insurance Name Policy Number Policy Love Covered Member ID Love Member ID Guarantor Name 12/04/2022 1 UNSPECIFIED REMIT PAYOR Yee Harrington 06/25/2025 1 [facility] (HMO) Yee Harrington [id number] Yee Harrington 06/25/2025 1 [facility] (MEDICAID HMO) Yee Harrington [id number] Yee Harrington Notes Date Note Type Note [...] they were normal. Hal Wang III, MD [address] [place] [address], [phone], [employer]. 08/30/2022 10:07:03 09/16/2022 text/html . C/sx2. BTL. [...] can be done. Hal Wang III, MD [address] [place] [address], [phone], [employer]. 09/16/2022 14:36:48 10/28/2022 text/html . C/sx2. BTL. With menorrhagia. See previous note for details. Nl labs and TVUS. Took treatment for Trich She has decided she would like to try a Mirena to control her menses. Placement and SE discussed. She would like to proceed today. She is just finishing a menses now. Hal Wang III, MD [address] [place], [address], [employer]. 10/28/2022 16:12:43 12/09/2022 text/html . C/sx2. BTL. With menorrhagia. Had Mirena placed 10-28-22. She loves it. Had a very lite menses. Still with some irreg. spotting. Nl pap 08/2022. + Trich, treated along with partner and SAMANTHA was negative, prior to placing IUD. TVUS today WNL and shows IUD in good position. Hal Wang III, MD [address] [place], [address], [employer] 12/09/2022 17:19:42 06/25/2025 text/html Annual GYNReport ed by Patient pt presents for her annual gynecological assistant evaluation She has had a tubal ligation [...] a benign finding Dora Alba CNM [address] [place], [address], [employer]. 06/25/2025 11:50:27 OBGyn Episode Ob Episode Information Episode Created Date Number of Fetuses Patient Bloodtype Patient rh Status Prepregnancy Weight lbs Domestic Partner Domestic Partner Phone Father Name Bandoleer Straightener Stamper Status 08/30/20 22 2 CLOSED Fetus Data [...] Confirmed By Final Alejandro Confirmed Date Final Aeljandro Date Ultra Sound Latest Days Gestation 0 [...] Domestic Partner Domestic Partner Phone Father Name Bandoleer Straightener Stamper Status 08/30/20 22 1 CLOSED Fetus Data [...]
--- OUTSIDE RECORDS SUMMARY | 2025-08-09 15:11 | XMS_ITS | Clinical Summary ---
Author Organization [employer] ([place], [place], [place], [place]) Address [address] [place] [address] Care Team Providers Care Motors And Generators Inspector Name Role Phone Corrina Helton MD Primary Care Provider [phone] Allergies No known active allergies Medications propranoloL (INDERAL LA) 60 MG 24 hr capsule Take 1 capsule (60 mg total) by mouth daily. 08/13/2024 Active Encounters Date Type Department Care Team Description 07/26/2025 Outside Orders [facility] Central Scheduling [address] [place] [address] [facility], Provider Not In The System, Screening mammogram for breast cancer (Primary Dx) 07/15/2025 Outside Orders [facility] Central Scheduling [address] [place] [address] Dora Burnham APRN from Last [...] Description 10/25/2025 1:30 PM EST Appointment [facility] [address] [place] [address] [facility], Provider Not In The System, [place] [address] Health Maintenance Due Date Last Done Comments [...] Insurance [facility] Care Teams Motors And Generators Inspector Relationship Specialty Start Date End Date Corrina Helton MD [address] [place] [address] PCP - General Internal Medicine 04/10/25
--- OUTSIDE RECORDS SUMMARY | 2025-08-09 15:11 | XMS_ITS | Encounter Summary ---
Author Organization [employer] ([place], [place], [place], [place]) Address [address] [place] [address] Care Team Providers Care Regional Service Manager Name Role Phone Corrina Helton MD Primary Care Provider [phone] Encounter Details Date Type Department Care Team (Late Contact Info) Description 07/15/2025 Outside Orders [facility] Central Scheduling [address] [place] [address] Dora Burnham, COMPENSATION DIRECTOR [address] [facility] [address] [place] [address] Social History Tobacco Use Types [...] Info) Description 10/25/2025 1:30 PM EST Appointment [facility] Breast Imaging [address] [place] [address] [facility], Provider Not In The System, [place] [address] documented as of this encounter Visit Diagnoses Not on filedocumented in this encounter Care Teams Regional Service Manager Relationship Specialty Start Date End Date Corrina Helton MD [address] [place] [address] PCP - General Internal Medicine 04/10/25 documented as of this encounter
--- OUTSIDE RECORDS SUMMARY | 2025-08-09 15:11 | XMS_ITS | Continuity of Care Document ---
Author Organization [facility] [employer], [facility]., [facility] Address [address] [place] [address] Assessment No assessment recorded. Plan of Treatment Reminders Order Date Submit Date Provider Last Modified By Organization Details Last Modified Time Details Appointments None recorded. Lab pap, IG + reflex HPV 2024 025 [facility] ([facility], [address] [place] [address], [place], [address], 5 11:08:12 Referral None recorded. Procedures removal, intrauterin e device (PROC) 2024 025 [email or web address] Not available 08:01:07 Surgeries None recorded. Imaging MAMMO, screening, digital, bilateral 2024 025 [email or web address] [facility] (Central Scheduling), [address], [place], [address], 5 13:19:07 Medication Orders None recorded. Patient TargetsNo targets recorded. Patient Instructions Encounter Date Encounter Id Patient Instructions Last Modified By Organization Details Last Modified Time 06/25/2025 [id number] pap q 5 yrs mammography every 1-2 yrs PCP yearly for a wellness exam pelvic prn [email or web address] Not available 06/25/2025 11:50:23 Reason for Referral None Reported. Results Created Date Observation Date Name Description Value Unit Range Abnormal Flag Note LastModifiedBy Organization Detail LastModifiedTime 06/25/2006/26/2025 IGP,A PTIMA HPV,A GE GDLN age gdln acog testing 30-65 Not Available [facility] ([facility]) [address], [place], [address], 06/27/2025 11:08:12 06/25/20 25 06/26/2025 IGP,A PTIMA HPV,A GE GDLN HPV aptima Negati ve negati ve This nucle ic acid ampli ficat ion test detec ts fourt een high- risk HPV types (16,1 8,31, 33,35 ,39,4 5,51, 52,56 ,58,5 9,66, 68) witho ut diffe renti ation . Not Available [facility] ([facility]) [address], [place], [address], 06/27/2025 11:08:12 06/25/20 25 06/27/2025 IGP,A PTIMA HPV,A GE GDLN diagnosis: Commen t NEGAT SALINA FOR INTRA EPITH ELIAL LOUISE Alexander OR CARLA KRAMER . Not Available [facility] ([facility]) [address], [place], [address], 06/27/2025 11:08:12 06/25/20 25 06/27/2025 IGP,A PTIMA HPV,A GE GDLN specimen adequacy: Commen t Satis facto ry for evalu ation . Endoc ervic al and/o r squam ous metap lasti c cells (endo cervi angelica compo nent) are prese nt. Not Available [facility] ([facility]) [address], [place], [address], 06/27/2025 11:08:12 06/25/20 25 06/27/2025 IGP,A PTIMA HPV,A GE GDLN clinician provided ICD10: Commen t Z01.4 19 Not Available [facility] ([facility]) [address], [place], [address], 06/27/2025 11:08:12 06/25/20 25 06/27/2025 IGP,A PTIMA HPV,A GE GDLN performed by: Delfin Mullins, Cytol ogist (ASCP ) Not Available [facility] ([facility]) [address] [place], [address], 06/27/2025 11:08:12 06/25/20 25 06/27/2025 IGP,A PTIMA HPV,A GE GDLN . . Not Available [facility] ([facility]) [address] [place], [address], 06/27/2025 11:08:12 06/25/2006/27/2025 IGP,A PTIMA HPV,A GE [...] [facility] ([facility]) [address] [place], [address], 06/27/2025 11:08:12 06/25/2006/27/2025 IGP,A PTIMA HPV,A GE GDLN test methodology: Delfin chery This liqui d based ThinP rep(R ) pap test was scree suad with the use of an image guide patricia systbahman m. Not Available [facility] ([facility]) [address] [place], [address], 06/27/2025 11:08:12 06/25/2006/27/2025 IGP,A PTIMA HPV,A GE GDLN HPV genotype reflex Delfin chery Crite raheel not met, HPV Genot ype not perfo rmed. Not Available [facility] ([facility]) [address] [place], [address], 06/27/2025 11:08:12 Result Notes None recorded. Problems Name Problem SNOMED Code Status Onset Date Resolution Date Notes Provider Name and Address Organization Details Recorded Time Menorrhagia 550040977 Active 2021 Hal Wang III, MD [address] [place] [address], [phone], [employer] 2 14:33:41 Surveillanc e of intrauterin e device contracepti on done 1762347032057 04 Active 2022 Hal Wang III, MD [address] [place] [address], [address], [employer] 3 17:19:02 Problem Notes None recorded. Procedures Surgical History Date Name Laterality Status Provider Name and Address Organization Details Recorded Time 06/25/20 25 IUD Removal completed Dora Alba CNM [address] [place] [address], [phone], [employer] 06/24/2025 18:39:29 10/28/19 23 IUD Insertion completed Hal Wang III, MD [address] [place] [address], [address], [employer] 10/28/2022 16:11:26 10/17/19 22 Most Recent Mammogram completed Yaima Forrest [employer] 06/25/2025 11:34:39 03/17/20 19 Date of Last Pap Smear completed [employer] 08/30/2022 09:35:14 Caesarean Section completed [employer] 08/30/2022 09:41:38 Caesarean Section completed [employer] 08/30/2022 09:41:45 ligation of fallopian tube completed [employer] 08/30/2022 09:41:53 tonsillectomy completed [employer] 08/30/2022 09:42:00 Imaging Results None recorded. [...] Address Organization Details Last Updated DateTime 5 [address]7096.5 5 g 70 /min 100 % 100 % 122/84 mm[Hg] Crystal Adriane [employer] 5 11:32:11 Date Recorded Body mass index (BMI) Body height Provider Name and Address Organization Details Last Updated DateTime 06/25/2025 29.1 kg/m2 162.56 cm Lesli Woodman [employer] 06/25/2025 11:38:40 Social History Question Answer Notes LastModified by Organizat ion Details LastModified Time Tobacco Smoking Status Current Every Day Smoker SocialHisto ryQuestion: 'Tobacco/Al cohol/Suppl ements'; SocialHisto ryResponse: 'Current Everyday Smoker'; Not Available [facility] 06/22/2022 23:01:19 Do You Have An [...] Or The Highest Degree You Have Received? [id number] Information not available 08/30/2022 Who Is Your Employer? Self Information not available 08/30/2022 Have There Been Any Changes To Your Family Or Social Situation? No Information no t available 08/30/2022 Are There Any Guns Present In Your Home? Yes Information not available 08/30/2022 Which Of Your Hands Is Dominant? Right Information not available 08/30/2022 Do You Have A Medical Power Of Stock Analyst? No Information not available 08/30/2022 What Was The Date Of Your Most Recent Tobacco Screening? 06/25/2025 [email or web address] Information not available 06/21/2025 What Is Your [...] Has Tobacco Cessation Counseling Been Provided? Yes [email or web address] Information not available 06/21/2025 On What Date [...] Functional Status Question Answer Note LastModified by [employer] Details LastModified Time Do you use [...] anxious, or unable to sleep at night)? [id number] Information not available 08/30/2022 Do you have [...] Recorded Time Tdap 05/14/2010 completed SUSAN wilkins [facility] [employer] [facility]. 08/30/2022 09:34:26 Past Encounters Encounter ID Performer Location Encounter Start Date Encounter Closed Date Diagnosis/Indication Diagnosis SNOMED-CT Code Diagnosis ICD10 Code Diagnosis IMO Codes Diagnosis Note [id number] Dora Alba CNM [facility] simón [address] [place] [address] 06/25/2025 11:21:11 06/25/2025 11:54:44 Gynecologic examination 37392345 Z01.419 Removal of intrauterine contraceptive device 6965646227 Z30.432 023013 Health Concerns Section Related Observation LastModified by Organization Detai ls LastModified Time None Recorded Concern Status LastModified by Organization Details LastModified Time None Recorded Payers Encounter Date Sequence Insurance Name Policy Number Policy Love Covered Member ID Love Member ID Guarantor Name 06/25/2025 1 [facility] (MEDICAID HMO) Yee Harrington [id number] Yee Harrington Notes Date Note Type Note Provider Name and Address Organization Details Recorded Time 06/25/2025 text/html Annual GYNReport ed by 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 06/25/2025 11:50:27 OBGyn Episode No OBEpisode recorded.
--- OUTSIDE RECORDS SUMMARY | 2025-08-09 15:11 | XMS_ITS | Referral Summary ---
Author Organization [employer] ([place], [place], [place], [place]) Address [address] [place] [address] Care Team Providers Care Cattyman Name Role Phone Corrina Helton MD Primary Care Provider [phone] Encounters Date Type Department Care Team Description 07/26/2025 Outside Orders [facility] Central Scheduling [address] [place] [address] [facility], Provider Not In The System, Screening mammogram for breast cancer (Primary Dx) 07/15/2025 Outside Orders [facility] Scheduling [address] [place] [address] Dora Burnham APRN from Last [...] Info) Description 10/25/2025 1:30 PM EST Appointment [facility] Breast Imaging [address] [place] [address] [facility], Provider Not In The System, [place] [address] Insurance [facility] Care Teams Cattyman Relationship Specialty Start Date End Date Corrina Helton MD [address] [place] [address] PCP - General Internal Medicine 04/10/25
== END 2025-08-09 23:59 | disposition home or self-care (01) ==
LOC: LAB 15:09
PROVIDERS: PCP Family Medicine; Visit Provider Family Medicine
DX: R79.89 Other specified abnormal findings of blood chemistry (principal)
CPT/HCPCS: 36415; 83970